=== PATIENT | male | born 1950 | race Caucasian/White ===

== ENCOUNTER 2017-06-30 15:50 | Emergency (ER) | payer MEDICARE, OTHER ==
[2017-06-30] MEDS: INDOMETHACIN 25 MG CAP PO (21:30)
== END 2017-06-30 21:40 | disposition home or self-care (01) ==
LOC: M ED 15:50
DX: M10.9 Gout, unspecified (principal); G71.0 Muscular dystrophy; Z79.899 Other long term (current) drug therapy
CPT/HCPCS: 73630

== ENCOUNTER 2017-07-03 14:10 | Inpatient (IN) | payer MEDICARE ==
[2017-07-03 15:53] LABS: BASO % 0.2 % (0.0-1.0); EOS % 0.4 % (0.0-3.0); HEMATOCRIT 35.2 % (42.0-52.0); HEMOGLOBIN 12.6 g/dl (13.5-17.5); IMMATURE GRANULOCYTE % 0.2 % (0-3.0); LYMPH # 0.4 10^3/uL (1.5-4.5); LYMPH % 9.2 % (24.0-44.0); MEAN CORPUSCULAR HEMOGLOBIN 36.3 pg (27.0-33.0); MEAN CORPUSCULAR HGB CONC 35.8 g/dl (32.0-36.5); MEAN CORPUSCULAR VOLUME 101.4 fl (80.0-96.0); MONO # 0.6 10^3/uL (0.0-0.8); MONO % 12.4 % (0.0-5.0); NEUTROPHILS # 3.7 10^3/uL (1.8-7.7); NEUTROPHILS % 77.6 % (36.0-66.0); RED BLOOD COUNT 3.47 10^6/uL (4.30-6.10); RED CELL DISTRIBUTION WIDTH 13.1 % (11.5-14.5); WHITE BLOOD COUNT 4.8 10^3/uL (4.0-10.0)
[2017-07-03 16:07] LABS: PLATELET COUNT, AUTOMATED 36 10^3/uL (150-450)
[2017-07-03 16:08] LABS: IMMATURE PLATELET FRACTION % 8.2 % (0.0-10.9)
[2017-07-03 16:15] LABS: ANION GAP 6 MEQ/L (8-16); BLOOD UREA NITROGEN 18 MG/DL (7-18); C REACTIVE PROTEIN QUANTITATIV 7.82 MG/DL (0.00-0.30); CARBON DIOXIDE LEVEL 27 MEQ/L (21-32); CHLORIDE LEVEL 102 MEQ/L (98-107); CREATININE FOR GFR 0.67 MG/DL (0.70-1.30); GLOMERULAR FILTRATION RATE > 60.0 (>49); GLUCOSE, FASTING 200 MG/DL (70-100); POTASSIUM SERUM 4.6 MEQ/L (3.5-5.1); SODIUM LEVEL 135 MEQ/L (136-145)
[2017-07-03 16:17] LABS: ERYTHROCYTE SEDIMENTATION RATE 50 mm/hr (0-20)
[2017-07-03 16:45] LABS: ESTIMATED AVERAGE GLUCOSE 114 MG/DL (60-110); HEMOGLOBIN A1c 5.6 %
[2017-07-03] MEDS: cefTRIAXone SOD 1 GM in D5W MINI-BAG PLUS 50 ML IV (17:15)
[2017-07-03] MEDS: NORCO, ANEXSIA 5/325MG TABLET (HYDROcodone/ACETAMINOPHEN) PO (17:22)
[2017-07-03] MEDS ORDERED: ONDANSETRON 4MG/2ML VIAL (J2405) IV (18:00)
[2017-07-03 18:25] LABS: LACTIC ACID SEPSIS PROTOCOL 1.5 MMOL/L (0.4-2.0)
[2017-07-03 19:37] LABS: URIC ACID 5.8 MG/DL (3.5-7.2)
[2017-07-03] MEDS: ACETAMINOPHEN TAB 650MG DOSE (2X325MG) PO (20:06)
[2017-07-04] MEDS: PIPERACILLIN/TAZOBACTAM SOD 3.375 GM in D5W MINI-BAG PLUS 50 ML IV ×5 (00:12→23:19)
[2017-07-04] MEDS: PERCOCET 5MG/325MG TAB PO ×4 (00:13→18:51)
[2017-07-04 07:18] LABS: HEMATOCRIT 33.5 % (42.0-52.0); HEMOGLOBIN 11.7 g/dl (13.5-17.5); MEAN CORPUSCULAR HEMOGLOBIN 35.9 pg (27.0-33.0); MEAN CORPUSCULAR HGB CONC 34.9 g/dl (32.0-36.5); MEAN CORPUSCULAR VOLUME 102.8 fl (80.0-96.0); RED BLOOD COUNT 3.26 10^6/uL (4.30-6.10); RED CELL DISTRIBUTION WIDTH 13.2 % (11.5-14.5); WHITE BLOOD COUNT 3.2 10^3/uL (4.0-10.0)
[2017-07-04 07:20] LABS: PLATELET COUNT, AUTOMATED 32 10^3/uL (150-450)
[2017-07-04 07:29] LABS: ANION GAP 8 MEQ/L (8-16); BLOOD UREA NITROGEN 14 MG/DL (7-18); C REACTIVE PROTEIN QUANTITATIV 9.08 MG/DL (0.00-0.30); CALCIUM LEVEL 8.8 MG/DL (8.8-10.2); CARBON DIOXIDE LEVEL 27 MEQ/L (21-32); CHLORIDE LEVEL 102 MEQ/L (98-107); CREATININE FOR GFR 0.72 MG/DL (0.70-1.30); GLOMERULAR FILTRATION RATE > 60.0 (>49); GLUCOSE, FASTING 170 MG/DL (70-100); POTASSIUM SERUM 4.8 MEQ/L (3.5-5.1); SODIUM LEVEL 137 MEQ/L (136-145)
[2017-07-04] MEDS: ATORVASTATIN 10 MG TAB PO (08:30)
[2017-07-04] MEDS: VITAMIN D 1,000 INTERNATIONAL UNITS TABLET PO (08:30)
[2017-07-04] MEDS: LISINOPRIL 20 MG TAB PO (08:30)
[2017-07-04] MEDS: PREVNAR 13 VACCINE SYRINGE (CPT CODE:90670) IM (08:56)
[2017-07-04] MEDS ORDERED: ENOXAPARIN 40 MG/0.4 ML SYRINGE (J1650) SC (09:00)
[2017-07-04] MEDS: VANCOMYCIN HCL 1,000 MG, VIAL MATE ADAPTER 1 EACH in D5W 250 ML IV ×2 (14:02→21:36)
[2017-07-05] MEDS: PERCOCET 5MG/325MG TAB PO ×3 (00:29→17:21)
[2017-07-05] MEDS: VANCOMYCIN HCL 1,000 MG, VIAL MATE ADAPTER 1 EACH in D5W 250 ML IV ×3 (05:42→21:09)
[2017-07-05 06:08] LABS: HEMOGLOBIN 10.5 g/dl (13.5-17.5); MEAN CORPUSCULAR HEMOGLOBIN 35.7 pg (27.0-33.0); RED BLOOD COUNT 2.94 10^6/uL (4.30-6.10); RED CELL DISTRIBUTION WIDTH 13.2 % (11.5-14.5); WHITE BLOOD COUNT 2.7 10^3/uL (4.0-10.0)
[2017-07-05 06:12] LABS: PLATELET COUNT, AUTOMATED 37 10^3/uL (150-450)
[2017-07-05 06:13] LABS: IMMATURE PLATELET FRACTION % 7.5 % (0.0-10.9)
[2017-07-05 06:24] LABS: ANION GAP 6 MEQ/L (8-16); BLOOD UREA NITROGEN 17 MG/DL (7-18); C REACTIVE PROTEIN QUANTITATIV 8.98 MG/DL (0.00-0.30); CALCIUM LEVEL 8.3 MG/DL (8.8-10.2); CARBON DIOXIDE LEVEL 28 MEQ/L (21-32); CHLORIDE LEVEL 101 MEQ/L (98-107); CREATININE FOR GFR 0.84 MG/DL (0.70-1.30); GLOMERULAR FILTRATION RATE > 60.0 (>49); GLUCOSE, FASTING 145 MG/DL (70-100); POTASSIUM SERUM 4.2 MEQ/L (3.5-5.1); SODIUM LEVEL 135 MEQ/L (136-145)
[2017-07-05] MEDS: PIPERACILLIN/TAZOBACTAM SOD 3.375 GM in D5W MINI-BAG PLUS 50 ML IV ×4 (06:37→23:27)
[2017-07-05] MEDS: ATORVASTATIN 10 MG TAB PO (07:59)
[2017-07-05] MEDS: VITAMIN D 1,000 INTERNATIONAL UNITS TABLET PO (08:00)
[2017-07-05] MEDS: LISINOPRIL 20 MG TAB PO (08:02)
[2017-07-05 13:53] LABS: VANCOMYCIN LEVEL TROUGH 14.5 UG/ML (10.0-20.0)
[2017-07-06] MEDS: PERCOCET 5MG/325MG TAB PO ×4 (00:42→19:04)
[2017-07-06] MEDS: PIPERACILLIN/TAZOBACTAM SOD 3.375 GM in D5W MINI-BAG PLUS 50 ML IV (05:50)
[2017-07-06 06:27] LABS: HEMATOCRIT 31.2 % (42.0-52.0); MEAN CORPUSCULAR HEMOGLOBIN 35.9 pg (27.0-33.0); MEAN CORPUSCULAR HGB CONC 35.3 g/dl (32.0-36.5); PLATELET COUNT, AUTOMATED 43 10^3/uL (150-450); RED BLOOD COUNT 3.06 10^6/uL (4.30-6.10); RED CELL DISTRIBUTION WIDTH 13.1 % (11.5-14.5); WHITE BLOOD COUNT 2.9 10^3/uL (4.0-10.0)
[2017-07-06 06:28] LABS: IMMATURE PLATELET FRACTION % 5.5 % (0.0-10.9)
[2017-07-06 06:42] LABS: ANION GAP 5 MEQ/L (8-16); BLOOD UREA NITROGEN 16 MG/DL (7-18); C REACTIVE PROTEIN QUANTITATIV 7.72 MG/DL (0.00-0.30); CALCIUM LEVEL 8.3 MG/DL (8.8-10.2); CARBON DIOXIDE LEVEL 30 MEQ/L (21-32); CHLORIDE LEVEL 101 MEQ/L (98-107); CREATININE FOR GFR 0.76 MG/DL (0.70-1.30); GLOMERULAR FILTRATION RATE > 60.0 (>49); GLUCOSE, FASTING 139 MG/DL (70-100); MAGNESIUM LEVEL 2.3 MG/DL (1.8-2.4); POTASSIUM SERUM 4.3 MEQ/L (3.5-5.1); SODIUM LEVEL 136 MEQ/L (136-145)
[2017-07-06] MEDS: VANCOMYCIN HCL 1,000 MG, VIAL MATE ADAPTER 1 EACH in D5W 250 ML IV ×3 (06:54→21:29)
[2017-07-06] MEDS: ATORVASTATIN 10 MG TAB PO (08:19)
[2017-07-06] MEDS: VITAMIN D 1,000 INTERNATIONAL UNITS TABLET PO (08:19)
[2017-07-06] MEDS ORDERED: PROHANCE 279.3MG/ML 5ML VIAL (A9576) As Ordered (12:37)
[2017-07-06] MEDS ORDERED: PROHANCE 279.3MG/ML 15ML VIAL (A9576) As Ordered (12:37)
[2017-07-07] MEDS: PERCOCET 5MG/325MG TAB PO ×6 (00:16→21:48)
[2017-07-07 05:57] LABS: HEMATOCRIT 32.4 % (42.0-52.0); HEMOGLOBIN 11.1 g/dl (13.5-17.5); MEAN CORPUSCULAR HEMOGLOBIN 34.6 pg (27.0-33.0); MEAN CORPUSCULAR HGB CONC 34.3 g/dl (32.0-36.5); MEAN CORPUSCULAR VOLUME 100.9 fl (80.0-96.0); RED BLOOD COUNT 3.21 10^6/uL (4.30-6.10); WHITE BLOOD COUNT 2.8 10^3/uL (4.0-10.0)
[2017-07-07 06:00] LABS: PLATELET COUNT, AUTOMATED 50 10^3/uL (150-450)
[2017-07-07] MEDS: VANCOMYCIN HCL 1,000 MG, VIAL MATE ADAPTER 1 EACH in D5W 250 ML IV ×3 (06:07→21:47)
[2017-07-07 06:17] LABS: ANION GAP 6 MEQ/L (8-16); BLOOD UREA NITROGEN 17 MG/DL (7-18); CALCIUM LEVEL 8.6 MG/DL (8.8-10.2); CARBON DIOXIDE LEVEL 28 MEQ/L (21-32); CHLORIDE LEVEL 103 MEQ/L (98-107); CREATININE FOR GFR 0.67 MG/DL (0.70-1.30); GLOMERULAR FILTRATION RATE > 60.0 (>49); GLUCOSE, FASTING 143 MG/DL (70-100); MAGNESIUM LEVEL 2.4 MG/DL (1.8-2.4); POTASSIUM SERUM 4.3 MEQ/L (3.5-5.1); SODIUM LEVEL 137 MEQ/L (136-145)
[2017-07-07] MEDS: VITAMIN D 1,000 INTERNATIONAL UNITS TABLET PO (08:24)
[2017-07-07] MEDS: ATORVASTATIN 10 MG TAB PO (08:25)
[2017-07-08] MEDS: PERCOCET 5MG/325MG TAB PO ×4 (02:16→22:04)
[2017-07-08 05:58] LABS: HEMATOCRIT 30.5 % (42.0-52.0); HEMOGLOBIN 10.7 g/dl (13.5-17.5); MEAN CORPUSCULAR HEMOGLOBIN 35.2 pg (27.0-33.0); MEAN CORPUSCULAR HGB CONC 35.1 g/dl (32.0-36.5); MEAN CORPUSCULAR VOLUME 100.3 fl (80.0-96.0); RED BLOOD COUNT 3.04 10^6/uL (4.30-6.10); WHITE BLOOD COUNT 2.8 10^3/uL (4.0-10.0)
[2017-07-08 06:05] LABS: ANION GAP 6 MEQ/L (8-16); BLOOD UREA NITROGEN 17 MG/DL (7-18); CALCIUM LEVEL 8.8 MG/DL (8.8-10.2); CARBON DIOXIDE LEVEL 29 MEQ/L (21-32); CHLORIDE LEVEL 103 MEQ/L (98-107); CREATININE FOR GFR 0.67 MG/DL (0.70-1.30); GLOMERULAR FILTRATION RATE > 60.0 (>49); GLUCOSE, FASTING 154 MG/DL (70-100); MAGNESIUM LEVEL 2.3 MG/DL (1.8-2.4); POTASSIUM SERUM 4.2 MEQ/L (3.5-5.1); SODIUM LEVEL 138 MEQ/L (136-145)
[2017-07-08] MEDS: VANCOMYCIN HCL 1,000 MG, VIAL MATE ADAPTER 1 EACH in D5W 250 ML IV (06:06)
[2017-07-08 06:17] LABS: PLATELET COUNT, AUTOMATED 51 10^3/uL (150-450)
[2017-07-08] MEDS: VITAMIN D 1,000 INTERNATIONAL UNITS TABLET PO (08:31)
[2017-07-08] MEDS: ATORVASTATIN 10 MG TAB PO (08:31)
[2017-07-08] MEDS: LOTRISONE CREAM 15 GM (BETAMETH/CLOTRIMAZOLE) TOP (09:00)
[2017-07-08] MEDS: DOXYCYCLINE HYCLATE 100 MG TAB PO (11:52)
[2017-07-08] MEDS: NAFCILLIN SOD 1 GM in D5W MINI-BAG PLUS 50 ML IV ×2 (13:53→18:09)
[2017-07-09] MEDS: NAFCILLIN SOD 1 GM in D5W MINI-BAG PLUS 50 ML IV ×4 (00:47→18:44)
[2017-07-09 06:15] LABS: HEMATOCRIT 30.7 % (42.0-52.0); HEMOGLOBIN 10.7 g/dl (13.5-17.5); MEAN CORPUSCULAR HEMOGLOBIN 35.5 pg (27.0-33.0); MEAN CORPUSCULAR HGB CONC 34.9 g/dl (32.0-36.5); PLATELET COUNT, AUTOMATED 51 10^3/uL (150-450); RED BLOOD COUNT 3.01 10^6/uL (4.30-6.10); RED CELL DISTRIBUTION WIDTH 12.9 % (11.5-14.5); WHITE BLOOD COUNT 2.2 10^3/uL (4.0-10.0)
[2017-07-09 06:17] LABS: IMMATURE PLATELET FRACTION % 4.3 % (0.0-10.9)
[2017-07-09] MEDS: PERCOCET 5MG/325MG TAB PO ×2 (06:34→14:19)
[2017-07-09 06:37] LABS: ANION GAP 4 MEQ/L (8-16); BLOOD UREA NITROGEN 17 MG/DL (7-18); CALCIUM LEVEL 8.8 MG/DL (8.8-10.2); CARBON DIOXIDE LEVEL 31 MEQ/L (21-32); CHLORIDE LEVEL 103 MEQ/L (98-107); GLOMERULAR FILTRATION RATE > 60.0 (>49); GLUCOSE, FASTING 129 MG/DL (70-100); POTASSIUM SERUM 4.3 MEQ/L (3.5-5.1); SODIUM LEVEL 138 MEQ/L (136-145)
[2017-07-09] MEDS: ATORVASTATIN 10 MG TAB PO (09:10)
[2017-07-09] MEDS: LOTRISONE CREAM 15 GM (BETAMETH/CLOTRIMAZOLE) TOP (09:10)
[2017-07-09] MEDS: VITAMIN D 1,000 INTERNATIONAL UNITS TABLET PO (09:10)
[2017-07-09] MEDS: DOCUSATE SODIUM 100 MG CAP PO (21:39)
[2017-07-10] MEDS: PERCOCET 5MG/325MG TAB PO ×3 (00:24→18:08)
[2017-07-10] MEDS: NAFCILLIN SOD 1 GM in D5W MINI-BAG PLUS 50 ML IV ×4 (00:24→19:41)
[2017-07-10 06:08] LABS: HEMATOCRIT 30.2 % (42.0-52.0); HEMOGLOBIN 10.3 g/dl (13.5-17.5); MEAN CORPUSCULAR HGB CONC 34.1 g/dl (32.0-36.5); MEAN CORPUSCULAR VOLUME 102.7 fl (80.0-96.0); RED BLOOD COUNT 2.94 10^6/uL (4.30-6.10); RED CELL DISTRIBUTION WIDTH 12.9 % (11.5-14.5); WHITE BLOOD COUNT 2.8 10^3/uL (4.0-10.0)
[2017-07-10 06:15] LABS: PLATELET COUNT, AUTOMATED 51 10^3/uL (150-450)
[2017-07-10 06:27] LABS: ANION GAP 5 MEQ/L (8-16); BLOOD UREA NITROGEN 20 MG/DL (7-18); CALCIUM LEVEL 8.5 MG/DL (8.8-10.2); CARBON DIOXIDE LEVEL 30 MEQ/L (21-32); CHLORIDE LEVEL 104 MEQ/L (98-107); CREATININE FOR GFR 0.69 MG/DL (0.70-1.30); GLOMERULAR FILTRATION RATE > 60.0 (>49); GLUCOSE, FASTING 122 MG/DL (70-100); POTASSIUM SERUM 4.4 MEQ/L (3.5-5.1); SODIUM LEVEL 139 MEQ/L (136-145)
[2017-07-10] MEDS: DOCUSATE SODIUM 100 MG CAP PO ×2 (08:15→19:41)
[2017-07-10] MEDS: ATORVASTATIN 10 MG TAB PO (08:15)
[2017-07-10] MEDS: VITAMIN D 1,000 INTERNATIONAL UNITS TABLET PO (08:15)
[2017-07-10] MEDS: LOTRISONE CREAM 15 GM (BETAMETH/CLOTRIMAZOLE) TOP (08:15)
[2017-07-10 10:36] LABS: C REACTIVE PROTEIN QUANTITATIV 1.65 MG/DL (0.00-0.30)
[2017-07-10] MEDS: predniSONE 20 MG TAB PO (10:57)
[2017-07-11] MEDS: NAFCILLIN SOD 1 GM in D5W MINI-BAG PLUS 50 ML IV ×4 (01:04→18:06)
[2017-07-11] MEDS: PERCOCET 5MG/325MG TAB PO ×3 (06:14→21:58)
[2017-07-11 06:43] LABS: FERRITIN 878 NG/ML (26-388); IRON (FE) 77 UG/DL (65-175); PERCENT SATURATION 34.8 % (19.7-50.0); TOTAL IRON BINDING CAPACITY 221 UG/DL (250-450)
[2017-07-11 07:56] LABS: HEMATOCRIT 29.4 % (42.0-52.0); HEMOGLOBIN 10.3 g/dl (13.5-17.5); MEAN CORPUSCULAR HEMOGLOBIN 35.9 pg (27.0-33.0); MEAN CORPUSCULAR VOLUME 102.4 fl (80.0-96.0); RED BLOOD COUNT 2.87 10^6/uL (4.30-6.10); RED CELL DISTRIBUTION WIDTH 12.7 % (11.5-14.5); WHITE BLOOD COUNT 3.2 10^3/uL (4.0-10.0)
[2017-07-11 08:02] LABS: ANION GAP 8 MEQ/L (8-16); BLOOD UREA NITROGEN 15 MG/DL (7-18); CALCIUM LEVEL 8.4 MG/DL (8.8-10.2); CARBON DIOXIDE LEVEL 27 MEQ/L (21-32); CHLORIDE LEVEL 106 MEQ/L (98-107); CREATININE FOR GFR 0.68 MG/DL (0.70-1.30); GLOMERULAR FILTRATION RATE > 60.0 (>49); GLUCOSE, FASTING 127 MG/DL (70-100); POTASSIUM SERUM 3.8 MEQ/L (3.5-5.1); SODIUM LEVEL 141 MEQ/L (136-145)
[2017-07-11 08:12] LABS: PLATELET COUNT, AUTOMATED 55 10^3/uL (150-450)
[2017-07-11 08:13] LABS: IMMATURE PLATELET FRACTION % 5.7 % (0.0-10.9)
[2017-07-11] MEDS: ATORVASTATIN 10 MG TAB PO (08:38)
[2017-07-11] MEDS: DOCUSATE SODIUM 100 MG CAP PO ×3 (08:38→20:43)
[2017-07-11] MEDS: VITAMIN D 1,000 INTERNATIONAL UNITS TABLET PO (08:38)
[2017-07-11] MEDS: predniSONE 20 MG TAB PO (08:38)
[2017-07-11] MEDS: LOTRISONE CREAM 15 GM (BETAMETH/CLOTRIMAZOLE) TOP (08:39)
[2017-07-12] MEDS: NAFCILLIN SOD 1 GM in D5W MINI-BAG PLUS 50 ML IV ×4 (00:22→18:17)
[2017-07-12 06:15] LABS: BASO % 0.7 % (0.0-1.0); EOS % 0.7 % (0.0-3.0); HEMOGLOBIN 10.6 g/dl (13.5-17.5); LYMPH # 0.9 10^3/uL (1.5-4.5); LYMPH % 30.8 % (24.0-44.0); MEAN CORPUSCULAR HEMOGLOBIN 35.2 pg (27.0-33.0); MEAN CORPUSCULAR HGB CONC 34.2 g/dl (32.0-36.5); MONO # 0.2 10^3/uL (0.0-0.8); MONO % 5.4 % (0.0-5.0); NEUTROPHILS # 1.8 10^3/uL (1.8-7.7); NEUTROPHILS % 60.4 % (36.0-66.0); RED BLOOD COUNT 3.01 10^6/uL (4.30-6.10); RED CELL DISTRIBUTION WIDTH 13.2 % (11.5-14.5)
[2017-07-12 06:20] LABS: PLATELET COUNT, AUTOMATED 55 10^3/uL (150-450)
[2017-07-12 06:29] LABS: ANION GAP 6 MEQ/L (8-16); BLOOD UREA NITROGEN 17 MG/DL (7-18); CALCIUM LEVEL 8.7 MG/DL (8.8-10.2); CARBON DIOXIDE LEVEL 29 MEQ/L (21-32); CHLORIDE LEVEL 106 MEQ/L (98-107); CREATININE FOR GFR 0.74 MG/DL (0.70-1.30); GLOMERULAR FILTRATION RATE > 60.0 (>49); GLUCOSE, FASTING 119 MG/DL (70-100); POTASSIUM SERUM 4.1 MEQ/L (3.5-5.1); SODIUM LEVEL 141 MEQ/L (136-145)
[2017-07-12] MEDS: predniSONE 10 MG TAB PO (10:20)
[2017-07-12] MEDS: PERCOCET 5MG/325MG TAB PO ×2 (10:20→18:17)
[2017-07-12] MEDS: LOTRISONE CREAM 15 GM (BETAMETH/CLOTRIMAZOLE) TOP (10:21)
[2017-07-12] MEDS: VITAMIN D 1,000 INTERNATIONAL UNITS TABLET PO (10:21)
[2017-07-12] MEDS: DOCUSATE SODIUM 100 MG CAP PO (10:21)
[2017-07-12] MEDS: ATORVASTATIN 10 MG TAB PO (10:21)
[2017-07-12 10:32] LABS: VITAMIN B12 LEVEL 1031 PG/ML (247-911)
[2017-07-12 10:33] LABS: FOLATE 15.8 NG/ML (>5.4)
[2017-07-12 19:21] LABS: C REACTIVE PROTEIN QUANTITATIV 0.59 MG/DL (0.00-0.30)
[2017-07-12 19:39] LABS: ALBUMIN 3.3 GM/DL (3.2-5.2); ALBUMIN/GLOBULIN RATIO 1.03 (1.00-1.93); ALKALINE PHOSPHATASE 106 U/L (45-117); ALT/SGPT 100 U/L (12-78); AST/SGOT 54 U/L (7-37); BILIRUBIN,DIRECT 0.3 MG/DL (0.0-0.2); BILIRUBIN,TOTAL 0.8 MG/DL (0.2-1.0); TOTAL PROTEIN 6.5 GM/DL (6.4-8.2)
[2017-07-13] MEDS: NAFCILLIN SOD 1 GM in D5W MINI-BAG PLUS 50 ML IV ×4 (00:41→18:46)
[2017-07-13 06:43] LABS: BASO % 0.7 % (0.0-1.0); EOS % 0.7 % (0.0-3.0); HEMATOCRIT 30.3 % (42.0-52.0); HEMOGLOBIN 10.5 g/dl (13.5-17.5); IMMATURE GRANULOCYTE % 1.4 % (0-3.0); LYMPH # 0.9 10^3/uL (1.5-4.5); LYMPH % 32.7 % (24.0-44.0); MEAN CORPUSCULAR HEMOGLOBIN 36.1 pg (27.0-33.0); MEAN CORPUSCULAR HGB CONC 34.7 g/dl (32.0-36.5); MEAN CORPUSCULAR VOLUME 104.1 fl (80.0-96.0); MONO # 0.2 10^3/uL (0.0-0.8); MONO % 6.5 % (0.0-5.0); NEUTROPHILS # 1.6 10^3/uL (1.8-7.7); RED BLOOD COUNT 2.91 10^6/uL (4.30-6.10); RED CELL DISTRIBUTION WIDTH 13.3 % (11.5-14.5); WHITE BLOOD COUNT 2.8 10^3/uL (4.0-10.0)
[2017-07-13 06:50] LABS: PLATELET COUNT, AUTOMATED 55 10^3/uL (150-450)
[2017-07-13 06:51] LABS: IMMATURE PLATELET FRACTION % 3.1 % (0.0-10.9)
[2017-07-13 06:53] LABS: ANION GAP 6 MEQ/L (8-16); BLOOD UREA NITROGEN 15 MG/DL (7-18); CALCIUM LEVEL 8.6 MG/DL (8.8-10.2); CARBON DIOXIDE LEVEL 30 MEQ/L (21-32); CHLORIDE LEVEL 105 MEQ/L (98-107); CREATININE FOR GFR 0.67 MG/DL (0.70-1.30); GLOMERULAR FILTRATION RATE > 60.0 (>49); GLUCOSE, FASTING 116 MG/DL (70-100); POTASSIUM SERUM 3.8 MEQ/L (3.5-5.1); SODIUM LEVEL 141 MEQ/L (136-145)
[2017-07-13] MEDS: predniSONE 10 MG TAB PO (08:50)
[2017-07-13] MEDS: ATORVASTATIN 10 MG TAB PO (08:50)
[2017-07-13] MEDS: PERCOCET 5MG/325MG TAB PO (08:50)
[2017-07-13] MEDS: VITAMIN D 1,000 INTERNATIONAL UNITS TABLET PO (08:51)
[2017-07-13] MEDS: LOTRISONE CREAM 15 GM (BETAMETH/CLOTRIMAZOLE) TOP (08:51)
[2017-07-13 09:51] LABS: ALPHA FETOPROTEIN TUMOR QUANT 2.6 NG/ML (<8.1)
[2017-07-13] MEDS: CEPHALEXIN 500 MG CAP PO (22:51)
[2017-07-14 06:32] LABS: BASO % 1.1 % (0.0-1.0); EOS % 0.7 % (0.0-3.0); HEMOGLOBIN 10.6 g/dl (13.5-17.5); IMMATURE GRANULOCYTE % 1.1 % (0-3.0); LYMPH # 0.8 10^3/uL (1.5-4.5); LYMPH % 30.2 % (24.0-44.0); MEAN CORPUSCULAR HEMOGLOBIN 35.6 pg (27.0-33.0); MEAN CORPUSCULAR HGB CONC 34.2 g/dl (32.0-36.5); MONO # 0.2 10^3/uL (0.0-0.8); MONO % 6.9 % (0.0-5.0); NEUTROPHILS # 1.7 10^3/uL (1.8-7.7); RED BLOOD COUNT 2.98 10^6/uL (4.30-6.10); RED CELL DISTRIBUTION WIDTH 13.6 % (11.5-14.5); WHITE BLOOD COUNT 2.8 10^3/uL (4.0-10.0)
[2017-07-14 06:34] LABS: PLATELET COUNT, AUTOMATED 56 10^3/uL (150-450)
[2017-07-14 06:35] LABS: IMMATURE PLATELET FRACTION % 3.1 % (0.0-10.9)
[2017-07-14 06:46] LABS: ANION GAP 7 MEQ/L (8-16); BLOOD UREA NITROGEN 14 MG/DL (7-18); CALCIUM LEVEL 8.5 MG/DL (8.8-10.2); CARBON DIOXIDE LEVEL 26 MEQ/L (21-32); CHLORIDE LEVEL 108 MEQ/L (98-107); CREATININE FOR GFR 0.66 MG/DL (0.70-1.30); GLOMERULAR FILTRATION RATE > 60.0 (>49); GLUCOSE, FASTING 119 MG/DL (70-100); POTASSIUM SERUM 3.9 MEQ/L (3.5-5.1); SODIUM LEVEL 141 MEQ/L (136-145)
[2017-07-14] MEDS: ATORVASTATIN 10 MG TAB PO (08:40)
[2017-07-14] MEDS: VITAMIN D 1,000 INTERNATIONAL UNITS TABLET PO (08:40)
[2017-07-14] MEDS: predniSONE 10 MG TAB PO (08:40)
[2017-07-14] MEDS: CEPHALEXIN 500 MG CAP PO ×3 (08:40→20:37)
[2017-07-14] MEDS: PERCOCET 5MG/325MG TAB PO ×2 (08:40→15:47)
[2017-07-14] MEDS: LOTRISONE CREAM 15 GM (BETAMETH/CLOTRIMAZOLE) TOP (08:41)
[2017-07-14 09:52] LABS: HEPATITIS C VIRUS ABY INDEX < 0.0 INDEX (<0.8)
[2017-07-15 06:17] LABS: BASO % 0.9 % (0.0-1.0); EOS % 0.9 % (0.0-3.0); HEMATOCRIT 31.4 % (42.0-52.0); HEMOGLOBIN 10.5 g/dl (13.5-17.5); IMMATURE GRANULOCYTE % 1.3 % (0-3.0); LYMPH # 1.1 10^3/uL (1.5-4.5); LYMPH % 34.5 % (24.0-44.0); MEAN CORPUSCULAR HGB CONC 33.4 g/dl (32.0-36.5); MEAN CORPUSCULAR VOLUME 104.7 fl (80.0-96.0); MONO # 0.2 10^3/uL (0.0-0.8); MONO % 6.9 % (0.0-5.0); NEUTROPHILS # 1.8 10^3/uL (1.8-7.7); NEUTROPHILS % 55.5 % (36.0-66.0); RED CELL DISTRIBUTION WIDTH 13.9 % (11.5-14.5); WHITE BLOOD COUNT 3.2 10^3/uL (4.0-10.0)
[2017-07-15 06:19] LABS: PLATELET COUNT, AUTOMATED 57 10^3/uL (150-450)
[2017-07-15 06:33] LABS: ANION GAP 6 MEQ/L (8-16); BLOOD UREA NITROGEN 14 MG/DL (7-18); CALCIUM LEVEL 8.5 MG/DL (8.8-10.2); CARBON DIOXIDE LEVEL 28 MEQ/L (21-32); CHLORIDE LEVEL 108 MEQ/L (98-107); GLOMERULAR FILTRATION RATE > 60.0 (>49); GLUCOSE, FASTING 115 MG/DL (70-100); POTASSIUM SERUM 4.1 MEQ/L (3.5-5.1); SODIUM LEVEL 142 MEQ/L (136-145)
[2017-07-15] MEDS: VITAMIN D 1,000 INTERNATIONAL UNITS TABLET PO (09:38)
[2017-07-15] MEDS: CEPHALEXIN 500 MG CAP PO ×3 (09:38→20:05)
[2017-07-15] MEDS: predniSONE 10 MG TAB PO (09:38)
[2017-07-15] MEDS: ATORVASTATIN 10 MG TAB PO (09:38)
[2017-07-15] MEDS: LOTRISONE CREAM 15 GM (BETAMETH/CLOTRIMAZOLE) TOP (09:39)
[2017-07-15] MEDS: PERCOCET 5MG/325MG TAB PO (09:39)
[2017-07-16 07:25] LABS: BASO % 0.9 % (0.0-1.0); EOS % 0.6 % (0.0-3.0); HEMATOCRIT 32.4 % (42.0-52.0); IMMATURE GRANULOCYTE % 0.9 % (0-3.0); LYMPH % 29.6 % (24.0-44.0); MEAN CORPUSCULAR HEMOGLOBIN 35.6 pg (27.0-33.0); MEAN CORPUSCULAR VOLUME 104.9 fl (80.0-96.0); MONO # 0.2 10^3/uL (0.0-0.8); MONO % 6.8 % (0.0-5.0); NEUTROPHILS # 2.1 10^3/uL (1.8-7.7); NEUTROPHILS % 61.2 % (36.0-66.0); PLATELET COUNT, AUTOMATED 65 10^3/uL (150-450); RED BLOOD COUNT 3.09 10^6/uL (4.30-6.10); RED CELL DISTRIBUTION WIDTH 14.3 % (11.5-14.5); WHITE BLOOD COUNT 3.4 10^3/uL (4.0-10.0)
[2017-07-16 07:45] LABS: ANION GAP 7 MEQ/L (8-16); BLOOD UREA NITROGEN 16 MG/DL (7-18); CALCIUM LEVEL 8.7 MG/DL (8.8-10.2); CARBON DIOXIDE LEVEL 28 MEQ/L (21-32); CHLORIDE LEVEL 107 MEQ/L (98-107); CREATININE FOR GFR 0.63 MG/DL (0.70-1.30); GLOMERULAR FILTRATION RATE > 60.0 (>49); GLUCOSE, FASTING 110 MG/DL (70-100); SODIUM LEVEL 142 MEQ/L (136-145)
[2017-07-16] MEDS: CEPHALEXIN 500 MG CAP PO ×3 (08:25→20:41)
[2017-07-16] MEDS: VITAMIN D 1,000 INTERNATIONAL UNITS TABLET PO (08:25)
[2017-07-16] MEDS: LOTRISONE CREAM 15 GM (BETAMETH/CLOTRIMAZOLE) TOP (08:25)
[2017-07-16] MEDS: ATORVASTATIN 10 MG TAB PO (08:25)
[2017-07-16] MEDS: predniSONE 10 MG TAB PO (08:25)
[2017-07-16] MEDS: PERCOCET 5MG/325MG TAB PO ×2 (08:35→14:10)
[2017-07-17 06:30] LABS: HEMATOCRIT 31.5 % (42.0-52.0); HEMOGLOBIN 10.6 g/dl (13.5-17.5); IMMATURE GRANULOCYTE % 0.3 % (0-3.0); MEAN CORPUSCULAR HEMOGLOBIN 35.5 pg (27.0-33.0); MEAN CORPUSCULAR HGB CONC 33.7 g/dl (32.0-36.5); MEAN CORPUSCULAR VOLUME 105.4 fl (80.0-96.0); MONO # 0.2 10^3/uL (0.0-0.8); MONO % 7.7 % (0.0-5.0); NEUTROPHILS # 1.7 10^3/uL (1.8-7.7); RED BLOOD COUNT 2.99 10^6/uL (4.30-6.10); RED CELL DISTRIBUTION WIDTH 14.1 % (11.5-14.5)
[2017-07-17 06:33] LABS: PLATELET COUNT, AUTOMATED 58 10^3/uL (150-450)
[2017-07-17 06:36] LABS: ANION GAP 4 MEQ/L (8-16); BLOOD UREA NITROGEN 18 MG/DL (7-18); CALCIUM LEVEL 8.4 MG/DL (8.8-10.2); CARBON DIOXIDE LEVEL 29 MEQ/L (21-32); CHLORIDE LEVEL 108 MEQ/L (98-107); CREATININE FOR GFR 0.58 MG/DL (0.70-1.30); GLOMERULAR FILTRATION RATE > 60.0 (>49); GLUCOSE, FASTING 158 MG/DL (70-100); POTASSIUM SERUM 3.7 MEQ/L (3.5-5.1); SODIUM LEVEL 141 MEQ/L (136-145)
[2017-07-17] MEDS: VITAMIN D 1,000 INTERNATIONAL UNITS TABLET PO (07:32)
[2017-07-17] MEDS: predniSONE 10 MG TAB PO (07:32)
[2017-07-17] MEDS: ATORVASTATIN 10 MG TAB PO (07:32)
[2017-07-17] MEDS: CEPHALEXIN 500 MG CAP PO (07:32)
[2017-07-17] MEDS: PERCOCET 5MG/325MG TAB PO (07:33)
[2017-07-17] MEDS: LOTRISONE CREAM 15 GM (BETAMETH/CLOTRIMAZOLE) TOP (08:06)
== END 2017-07-17 11:39 | disposition home or self-care (01) | DRG 603 ==
LOC: M MSPAV 07-06 23:17 → M ED 14:10 → M MSPAV 07-06 23:10 → M ED INP 17:07 → M MSPAV 07-06 23:10 → M ED INP 17:08 → M MSPAV 18:28
DX: L03.116 Cellulitis of left lower limb (principal); G71.0 Muscular dystrophy; D61.818 Other pancytopenia; S86.912A Strain of unspecified muscle(s) and tendon(s) at lower leg level, left leg, initial encounter; E78.5 Hyperlipidemia, unspecified; D69.6 Thrombocytopenia, unspecified; K74.69 Other cirrhosis of liver; M76.71 Peroneal tendinitis, right leg; Z79.899 Other long term (current) drug therapy; M10.9 Gout, unspecified; I10 Essential (primary) hypertension; F10.10 Alcohol abuse, uncomplicated; W18.30XA Fall on same level, unspecified, initial encounter; Y92.009 Unspecified place in unspecified non-institutional (private) residence as the place of occurrence of the external cause

== ENCOUNTER 2018-01-03 21:20 | Emergency (ER) | payer MEDICARE ==
[2018-01-03] MEDS: NORCO 5/325MG TABLET (BULK FOR ED) PO (23:18)
== END 2018-01-03 23:28 | disposition home or self-care (01) ==
LOC: M ED 21:20
DX: S63.8X1A Sprain of other part of right wrist and hand, initial encounter (principal); X58.XXXA Exposure to other specified factors, initial encounter; Y92.018 Other place in single-family (private) house as the place of occurrence of the external cause
CPT/HCPCS: 73110

== ENCOUNTER 2018-01-06 13:21 | Emergency (ER) | payer MEDICARE | END 2018-01-06 15:13 | disposition home or self-care (01) | LOC: M ED 13:21 | DX: S69.91XA Unspecified injury of right wrist, hand and finger(s), initial encounter (principal); X50.9XXA Other and unspecified overexertion or strenuous movements or postures, initial encounter; Y92.89 Other specified places as the place of occurrence of the external cause; E78.00 Pure hypercholesterolemia, unspecified; I95.9 Hypotension, unspecified; G71.02 Facioscapulohumeral muscular dystrophy | CPT/HCPCS: 99283 ==

== ENCOUNTER 2018-01-12 10:28 | Inpatient (IN) | payer MEDICARE ==
[~2018-01-12 10:28] MED LIST: ATORVASTATIN 10 MG TAB PO
[2018-01-12] MEDS: MORPHINE 4 MG/ML 1ML VIAL/SYRINGE (J2270) IV (11:19)
[2018-01-12 11:33] LABS: HEMATOCRIT 31.5 % (42.0-52.0); HEMOGLOBIN 11.1 g/dl (13.5-17.5); MEAN CORPUSCULAR HEMOGLOBIN 35.5 pg (27.0-33.0); MEAN CORPUSCULAR HGB CONC 35.2 g/dl (32.0-36.5); MEAN CORPUSCULAR VOLUME 100.6 fl (80.0-96.0); RED BLOOD COUNT 3.13 10^6/uL (4.30-6.10); RED CELL DISTRIBUTION WIDTH 13.2 % (11.5-14.5); WHITE BLOOD COUNT 5.1 10^3/uL (4.0-10.0)
[2018-01-12 11:47] LABS: PLATELET COUNT, AUTOMATED 33 10^3/uL (150-450); POSITIVE DIFF POS FLAG; POSITIVE MORPH POS FLAG
[2018-01-12 11:48] LABS: ADD MANUAL DIFFER YES; DIFF SLIDE NUMBER 231
[2018-01-12 11:53] LABS: ANION GAP 11 MEQ/L (8-16); BLOOD UREA NITROGEN 18 MG/DL (7-18); CALCIUM LEVEL 7.4 MG/DL (8.8-10.2); CARBON DIOXIDE LEVEL 26 MEQ/L (21-32); CHLORIDE LEVEL 93 MEQ/L (98-107); CREATININE FOR GFR 0.69 MG/DL (0.70-1.30); GLOMERULAR FILTRATION RATE > 60.0 (>49); GLUCOSE, FASTING 177 MG/DL (70-100); POTASSIUM SERUM 3.7 MEQ/L (3.5-5.1); SODIUM LEVEL 130 MEQ/L (136-145)
[2018-01-12 12:14] LABS: BANDS 14 % (< 11); LYMPHOCYTES 7 % (16-52); METAMYELOCYTES 1 % (0-0); MONOCYTES 10 % (0-8); NEUTROPHILS 68 % (35-75)
[2018-01-12 12:15] LABS: PLATELET ESTIMATE MARKED DECREASE (NORMAL); POLYCHROMASIA 1+; TOXIC GRANULATION 2+; TOXIC VACUOLATION 2+
[2018-01-12 12:56] LABS: IMMATURE PLATELET FRACTION % 10.7 % (0.0-10.9)
[2018-01-12] MEDS: NS 1,000 ML IV ×2 (13:45→23:45)
[2018-01-12 14:11] LABS: ALBUMIN 2.2 GM/DL (3.2-5.2); ALBUMIN/GLOBULIN RATIO 0.79 (1.00-1.93); ALKALINE PHOSPHATASE 91 U/L (45-117); ALT/SGPT 69 U/L (12-78); AST/SGOT 67 U/L (7-37); BILIRUBIN,DIRECT 1.2 MG/DL (0.0-0.2); BILIRUBIN,TOTAL 2.1 MG/DL (0.2-1.0)
[2018-01-12] MEDS: ceFAZolin SOD 1 GM in D5W MINI-BAG PLUS 50 ML IV ×2 (14:15→22:24)
[2018-01-12] MEDS: PERCOCET 5MG/325MG TAB PO ×2 (14:23→20:06)
[2018-01-12 14:31] LABS: CHLORIDE,RANDOM URINE 11 MEQ/L; POTASSIUM RANDOM URINE 6.1 MEQ/L; SODIUM,RANDOM URINE < 10 MEQ/L
[2018-01-12 14:55] LABS: OSMOLALITY URINE 138 MOSM/KG (500-800)
[2018-01-12 19:49] LABS: ANION GAP 11 MEQ/L (8-16); BLOOD UREA NITROGEN 16 MG/DL (7-18); CALCIUM LEVEL 7.4 MG/DL (8.8-10.2); CARBON DIOXIDE LEVEL 25 MEQ/L (21-32); CHLORIDE LEVEL 94 MEQ/L (98-107); CREATININE FOR GFR 0.69 MG/DL (0.70-1.30); GLOMERULAR FILTRATION RATE > 60.0 (>49); GLUCOSE, FASTING 171 MG/DL (70-100); POTASSIUM SERUM 3.7 MEQ/L (3.5-5.1); SODIUM LEVEL 130 MEQ/L (136-145)
[2018-01-12] MEDS: DOCUSATE SODIUM 100 MG CAP PO (22:23)
[2018-01-13] MEDS: PERCOCET 5MG/325MG TAB PO ×4 (03:56→23:03)
[2018-01-13 04:41] LABS: HEMATOCRIT 31.6 % (42.0-52.0); HEMOGLOBIN 11.1 g/dl (13.5-17.5); MEAN CORPUSCULAR HGB CONC 35.1 g/dl (32.0-36.5); MEAN CORPUSCULAR VOLUME 99.7 fl (80.0-96.0); RED BLOOD COUNT 3.17 10^6/uL (4.30-6.10); RED CELL DISTRIBUTION WIDTH 13.2 % (11.5-14.5); WHITE BLOOD COUNT 6.3 10^3/uL (4.0-10.0)
[2018-01-13 04:45] LABS: PLATELET COUNT, AUTOMATED 41 10^3/uL (150-450)
[2018-01-13 05:08] LABS: ANION GAP 10 MEQ/L (8-16); BLOOD UREA NITROGEN 15 MG/DL (7-18); CALCIUM LEVEL 7.4 MG/DL (8.8-10.2); CARBON DIOXIDE LEVEL 25 MEQ/L (21-32); CHLORIDE LEVEL 94 MEQ/L (98-107); CREATININE FOR GFR 0.65 MG/DL (0.70-1.30); GLOMERULAR FILTRATION RATE > 60.0 (>49); GLUCOSE, FASTING 141 MG/DL (70-100); POTASSIUM SERUM 3.5 MEQ/L (3.5-5.1); SODIUM LEVEL 129 MEQ/L (136-145)
[2018-01-13] MEDS: ceFAZolin SOD 1 GM in D5W MINI-BAG PLUS 50 ML IV ×3 (05:40→23:03)
[2018-01-13] MEDS: ATORVASTATIN 10 MG TAB PO (08:22)
[2018-01-13] MEDS: DOCUSATE SODIUM 100 MG CAP PO ×2 (08:22→21:37)
[2018-01-13] MEDS: NS 1,000 ML IV (10:09)
[2018-01-13 11:36] LABS: ANION GAP 9 MEQ/L (8-16); BLOOD UREA NITROGEN 16 MG/DL (7-18); CALCIUM LEVEL 7.3 MG/DL (8.8-10.2); CARBON DIOXIDE LEVEL 26 MEQ/L (21-32); CHLORIDE LEVEL 96 MEQ/L (98-107); CREATININE FOR GFR 0.59 MG/DL (0.70-1.30); GLOMERULAR FILTRATION RATE > 60.0 (>49); GLUCOSE, FASTING 157 MG/DL (70-100); POTASSIUM SERUM 3.7 MEQ/L (3.5-5.1); SODIUM LEVEL 131 MEQ/L (136-145)
[2018-01-13] MEDS ORDERED: VANCOMYCIN HCL 1,000 MG, VIAL MATE ADAPTER 1 EACH in D5W 250 ML IV (14:00)
[2018-01-13] MEDS: VANCOMYCIN HCL 1,000 MG, VIAL MATE ADAPTER 1 EACH in D5W 250 ML IV ×2 (15:02→21:37)
[2018-01-14 06:07] LABS: HEMATOCRIT 33.7 % (42.0-52.0); HEMOGLOBIN 11.8 g/dl (13.5-17.5); MEAN CORPUSCULAR HEMOGLOBIN 34.9 pg (27.0-33.0); MEAN CORPUSCULAR VOLUME 99.7 fl (80.0-96.0); RED BLOOD COUNT 3.38 10^6/uL (4.30-6.10); RED CELL DISTRIBUTION WIDTH 13.2 % (11.5-14.5); WHITE BLOOD COUNT 4.6 10^3/uL (4.0-10.0)
[2018-01-14 06:09] LABS: PLATELET COUNT, AUTOMATED 47 10^3/uL (150-450)
[2018-01-14 06:11] LABS: IMMATURE PLATELET FRACTION % 6.7 % (0.0-10.9)
[2018-01-14] MEDS: VANCOMYCIN HCL 1,000 MG, VIAL MATE ADAPTER 1 EACH in D5W 250 ML IV ×3 (06:19→21:38)
[2018-01-14 06:23] LABS: ANION GAP 9 MEQ/L (8-16); BLOOD UREA NITROGEN 14 MG/DL (7-18); CALCIUM LEVEL 7.7 MG/DL (8.8-10.2); CARBON DIOXIDE LEVEL 27 MEQ/L (21-32); CHLORIDE LEVEL 95 MEQ/L (98-107); GLOMERULAR FILTRATION RATE > 60.0 (>49); GLUCOSE, FASTING 144 MG/DL (70-100); POTASSIUM SERUM 3.3 MEQ/L (3.5-5.1); SODIUM LEVEL 131 MEQ/L (136-145)
[2018-01-14] MEDS: ceFAZolin SOD 1 GM in D5W MINI-BAG PLUS 50 ML IV ×3 (06:56→22:52)
[2018-01-14] MEDS: PERCOCET 5MG/325MG TAB PO ×2 (08:45→21:38)
[2018-01-14] MEDS: DOCUSATE SODIUM 100 MG CAP PO ×2 (08:45→21:37)
[2018-01-14] MEDS: ATORVASTATIN 10 MG TAB PO (09:00)
[2018-01-14] MEDS ORDERED: KETOROLAC 30 MG/ML VIAL (J1885) IV (12:15)
[2018-01-14] MEDS: KETOROLAC 30 MG/ML VIAL (J1885) IV ×2 (12:59→18:30)
[2018-01-14] MEDS: POTASSIUM CHLORIDE 10 MEQ SR TABLET PO (12:59)
[2018-01-15] MEDS: KETOROLAC 30 MG/ML VIAL (J1885) IV ×4 (00:10→18:00)
[2018-01-15] MEDS: PERCOCET 5MG/325MG TAB PO ×2 (05:18→13:20)
[2018-01-15] MEDS: VANCOMYCIN HCL 1,000 MG, VIAL MATE ADAPTER 1 EACH in D5W 250 ML IV (05:19)
[2018-01-15 06:18] LABS: HEMOGLOBIN 10.9 g/dl (13.5-17.5); MEAN CORPUSCULAR HGB CONC 35.2 g/dl (32.0-36.5); MEAN CORPUSCULAR VOLUME 99.7 fl (80.0-96.0); RED BLOOD COUNT 3.11 10^6/uL (4.30-6.10); RED CELL DISTRIBUTION WIDTH 13.1 % (11.5-14.5); WHITE BLOOD COUNT 5.1 10^3/uL (4.0-10.0)
[2018-01-15 06:23] LABS: IMMATURE PLATELET FRACTION % 5.8 % (0.0-10.9); PLATELET COUNT, AUTOMATED 54 10^3/uL (150-450)
[2018-01-15] MEDS: ceFAZolin SOD 1 GM in D5W MINI-BAG PLUS 50 ML IV ×3 (06:42→22:20)
[2018-01-15 06:49] LABS: ANION GAP 8 MEQ/L (8-16); BLOOD UREA NITROGEN 16 MG/DL (7-18); CALCIUM LEVEL 6.8 MG/DL (8.8-10.2); CARBON DIOXIDE LEVEL 23 MEQ/L (21-32); CHLORIDE LEVEL 80 MEQ/L (98-107); CREATININE FOR GFR 0.69 MG/DL (0.70-1.30); GLOMERULAR FILTRATION RATE > 60.0 (>49); GLUCOSE, FASTING 708 MG/DL (70-100); POTASSIUM SERUM 3.5 MEQ/L (3.5-5.1); SODIUM LEVEL 111 MEQ/L (136-145)
[2018-01-15 06:58] LABS: BEDSIDE GLUCOSE 180 MG/DL (80-115)
[2018-01-15 08:22] LABS: ANION GAP 9 MEQ/L (8-16); BLOOD UREA NITROGEN 17 MG/DL (7-18); CALCIUM LEVEL 7.7 MG/DL (8.8-10.2); CARBON DIOXIDE LEVEL 26 MEQ/L (21-32); CHLORIDE LEVEL 94 MEQ/L (98-107); CREATININE FOR GFR 0.56 MG/DL (0.70-1.30); GLOMERULAR FILTRATION RATE > 60.0 (>49); GLUCOSE, FASTING 195 MG/DL (70-100); POTASSIUM SERUM 4.1 MEQ/L (3.5-5.1); SODIUM LEVEL 129 MEQ/L (136-145)
[2018-01-15] MEDS: ATORVASTATIN 10 MG TAB PO (08:52)
[2018-01-15] MEDS: DOCUSATE SODIUM 100 MG CAP PO (08:52)
[2018-01-15] MEDS ORDERED: FLEET ENEMA PR (09:45)
[2018-01-15] MEDS: BISACODYL 5 MG TAB PO (12:18)
[2018-01-15] MEDS: SENOKOT S TAB PO ×2 (12:18→22:20)
[2018-01-16] MEDS: ceFAZolin SOD 1 GM in D5W MINI-BAG PLUS 50 ML IV ×3 (05:44→22:02)
[2018-01-16] MEDS: KETOROLAC 30 MG/ML VIAL (J1885) IV ×4 (05:44→18:05)
[2018-01-16 06:08] LABS: HEMATOCRIT 33.6 % (42.0-52.0); HEMOGLOBIN 11.9 g/dl (13.5-17.5); MEAN CORPUSCULAR HEMOGLOBIN 34.8 pg (27.0-33.0); MEAN CORPUSCULAR HGB CONC 35.4 g/dl (32.0-36.5); MEAN CORPUSCULAR VOLUME 98.2 fl (80.0-96.0); RED BLOOD COUNT 3.42 10^6/uL (4.30-6.10); RED CELL DISTRIBUTION WIDTH 13.2 % (11.5-14.5); WHITE BLOOD COUNT 5.6 10^3/uL (4.0-10.0)
[2018-01-16 06:09] LABS: PLATELET COUNT, AUTOMATED 68 10^3/uL (150-450)
[2018-01-16 06:22] LABS: ANION GAP 7 MEQ/L (8-16); BLOOD UREA NITROGEN 19 MG/DL (7-18); CALCIUM LEVEL 8.1 MG/DL (8.8-10.2); CARBON DIOXIDE LEVEL 28 MEQ/L (21-32); CHLORIDE LEVEL 94 MEQ/L (98-107); CREATININE FOR GFR 0.64 MG/DL (0.70-1.30); GLOMERULAR FILTRATION RATE > 60.0 (>49); GLUCOSE, FASTING 155 MG/DL (70-100); POTASSIUM SERUM 4.1 MEQ/L (3.5-5.1); SODIUM LEVEL 129 MEQ/L (136-145)
[2018-01-16] MEDS: BISACODYL 5 MG TAB PO ×2 (09:02→09:06)
[2018-01-16] MEDS: SENOKOT S TAB PO ×2 (09:02→20:06)
[2018-01-16] MEDS: ATORVASTATIN 10 MG TAB PO (09:02)
[2018-01-16] MEDS: PERCOCET 5MG/325MG TAB PO ×3 (09:05→22:02)
[2018-01-17] MEDS: KETOROLAC 30 MG/ML VIAL (J1885) IV ×5 (01:09→23:33)
[2018-01-17] MEDS: MORPHINE 4 MG/ML 1ML VIAL/SYRINGE (J2270) IV (02:47)
[2018-01-17] MEDS: PERCOCET 5MG/325MG TAB PO ×2 (04:21→21:25)
[2018-01-17] MEDS: ceFAZolin SOD 1 GM in D5W MINI-BAG PLUS 50 ML IV ×3 (05:53→21:25)
[2018-01-17 07:01] LABS: HEMATOCRIT 32.3 % (42.0-52.0); HEMOGLOBIN 11.3 g/dl (13.5-17.5); MEAN CORPUSCULAR HEMOGLOBIN 35.2 pg (27.0-33.0); MEAN CORPUSCULAR VOLUME 100.6 fl (80.0-96.0); RED BLOOD COUNT 3.21 10^6/uL (4.30-6.10); RED CELL DISTRIBUTION WIDTH 13.2 % (11.5-14.5); WHITE BLOOD COUNT 4.8 10^3/uL (4.0-10.0)
[2018-01-17 07:02] LABS: IMMATURE PLATELET FRACTION % 3.9 % (0.0-10.9); PLATELET COUNT, AUTOMATED 72 10^3/uL (150-450)
[2018-01-17 07:21] LABS: ANION GAP 7 MEQ/L (8-16); BLOOD UREA NITROGEN 22 MG/DL (7-18); C REACTIVE PROTEIN QUANTITATIV 7.98 MG/DL (0.00-0.30); CALCIUM LEVEL 7.7 MG/DL (8.8-10.2); CARBON DIOXIDE LEVEL 28 MEQ/L (21-32); CHLORIDE LEVEL 95 MEQ/L (98-107); CREATININE FOR GFR 0.63 MG/DL (0.70-1.30); GLOMERULAR FILTRATION RATE > 60.0 (>49); GLUCOSE, FASTING 148 MG/DL (70-100); POTASSIUM SERUM 4.5 MEQ/L (3.5-5.1); SODIUM LEVEL 130 MEQ/L (136-145)
[2018-01-17] MEDS: ATORVASTATIN 10 MG TAB PO (08:44)
[2018-01-17] MEDS: SENOKOT S TAB PO ×2 (08:44→21:24)
[2018-01-17] MEDS: BISACODYL 5 MG TAB PO (08:44)
[2018-01-17] MEDS ORDERED: PROHANCE 279.3MG/ML 15ML VIAL (A9576) As Ordered (20:36)
[2018-01-17] MEDS ORDERED: PROHANCE 279.3MG/ML 5ML VIAL (A9576) As Ordered (20:36)
[2018-01-17] MEDS: RAMELTEON 8 MG TAB (ROZEREM) PO (23:33)
[2018-01-18] MEDS: KETOROLAC 30 MG/ML VIAL (J1885) IV ×3 (05:30→18:25)
[2018-01-18] MEDS: ceFAZolin SOD 1 GM in D5W MINI-BAG PLUS 50 ML IV ×2 (05:30→14:27)
[2018-01-18] MEDS: PERCOCET 5MG/325MG TAB PO ×2 (05:31→20:58)
[2018-01-18 05:48] LABS: HEMATOCRIT 33.7 % (42.0-52.0); HEMOGLOBIN 11.7 g/dl (13.5-17.5); MEAN CORPUSCULAR HEMOGLOBIN 34.3 pg (27.0-33.0); MEAN CORPUSCULAR HGB CONC 34.7 g/dl (32.0-36.5); MEAN CORPUSCULAR VOLUME 98.8 fl (80.0-96.0); RED BLOOD COUNT 3.41 10^6/uL (4.30-6.10); RED CELL DISTRIBUTION WIDTH 12.9 % (11.5-14.5); WHITE BLOOD COUNT 4.8 10^3/uL (4.0-10.0)
[2018-01-18 05:51] LABS: PLATELET COUNT, AUTOMATED 81 10^3/uL (150-450)
[2018-01-18 06:06] LABS: ANION GAP 8 MEQ/L (8-16); BLOOD UREA NITROGEN 22 MG/DL (7-18); C REACTIVE PROTEIN QUANTITATIV 6.94 MG/DL (0.00-0.30); CALCIUM LEVEL 7.7 MG/DL (8.8-10.2); CARBON DIOXIDE LEVEL 25 MEQ/L (21-32); CHLORIDE LEVEL 96 MEQ/L (98-107); CREATININE FOR GFR 0.54 MG/DL (0.70-1.30); GLOMERULAR FILTRATION RATE > 60.0 (>49); GLUCOSE, FASTING 130 MG/DL (70-100); SODIUM LEVEL 129 MEQ/L (136-145)
[2018-01-18] MEDS: ATORVASTATIN 10 MG TAB PO (08:58)
[2018-01-18] MEDS: BISACODYL 5 MG TAB PO (08:58)
[2018-01-18] MEDS: SENOKOT S TAB PO ×2 (08:59→20:57)
[2018-01-18] MEDS ORDERED: LIDOCAINE 1% MDV 20ML VIAL SC (10:45)
[2018-01-18] MEDS ORDERED: LIDOCAINE 1% MDV 20ML VIAL As Ordered (14:46)
[2018-01-18 16:12] LABS: APPEARANCE, BODY FLUID CLOTTED (CLEAR); SOURCE, BODY FLUID RT WRIST; SYNOVIAL FLUID COLOR RED (YELLOW)
[2018-01-18 16:20] LABS: CRYSTALS, BODY FLUID NONE SEEN (NONE SEEN); SOURCE, BODY FLUID CRYSTALS RT WRIST
[2018-01-18 18:53] LABS: BASO % 0.4 % (0.0-1.0); EOS % 0.2 % (0.0-3.0); HEMATOCRIT 32.9 % (42.0-52.0); HEMOGLOBIN 11.4 g/dl (13.5-17.5); IMMATURE GRANULOCYTE % 0.8 % (0-3.0); LYMPH # 0.5 10^3/uL (1.5-4.5); LYMPH % 10.4 % (24.0-44.0); MEAN CORPUSCULAR HEMOGLOBIN 34.7 pg (27.0-33.0); MEAN CORPUSCULAR HGB CONC 34.7 g/dl (32.0-36.5); MONO # 0.3 10^3/uL (0.0-0.8); MONO % 6.6 % (0.0-5.0); NEUTROPHILS # 3.9 10^3/uL (1.8-7.7); NEUTROPHILS % 81.6 % (36.0-66.0); RED BLOOD COUNT 3.29 10^6/uL (4.30-6.10); RED CELL DISTRIBUTION WIDTH 13.1 % (11.5-14.5); WHITE BLOOD COUNT 4.7 10^3/uL (4.0-10.0)
[2018-01-18 19:14] LABS: PLATELET COUNT, AUTOMATED 91 10^3/uL (150-450)
[2018-01-18] MEDS: RAMELTEON 8 MG TAB (ROZEREM) PO (20:57)
[2018-01-18 21:33] LABS: URIC ACID, BODY FLUID 2.2 MG/DL (NOT ESTABLISHED)
[2018-01-19] MEDS: KETOROLAC 30 MG/ML VIAL (J1885) IV ×2 (01:12→05:19)
[2018-01-19 03:01] LABS: IMMUNOGLOBULIN A 292 MG/DL (70-400); IMMUNOGLOBULIN G 1090 MG/DL (681-1648); IMMUNOGLOBULIN M 109 MG/DL (40-230)
[2018-01-19] MEDS: PERCOCET 5MG/325MG TAB PO (04:39)
[2018-01-19 06:31] LABS: HEMOGLOBIN 10.5 g/dl (13.5-17.5); MEAN CORPUSCULAR HEMOGLOBIN 34.1 pg (27.0-33.0); MEAN CORPUSCULAR HGB CONC 33.9 g/dl (32.0-36.5); MEAN CORPUSCULAR VOLUME 100.6 fl (80.0-96.0); RED BLOOD COUNT 3.08 10^6/uL (4.30-6.10); RED CELL DISTRIBUTION WIDTH 13.2 % (11.5-14.5); WHITE BLOOD COUNT 2.9 10^3/uL (4.0-10.0)
[2018-01-19 06:32] LABS: PLATELET COUNT, AUTOMATED 81 10^3/uL (150-450)
[2018-01-19 06:47] LABS: ANION GAP 7 MEQ/L (8-16); BLOOD UREA NITROGEN 21 MG/DL (7-18); C REACTIVE PROTEIN QUANTITATIV 3.49 MG/DL (0.00-0.30); CALCIUM LEVEL 7.8 MG/DL (8.8-10.2); CARBON DIOXIDE LEVEL 27 MEQ/L (21-32); CHLORIDE LEVEL 99 MEQ/L (98-107); CREATININE FOR GFR 0.56 MG/DL (0.70-1.30); GLOMERULAR FILTRATION RATE > 60.0 (>49); GLUCOSE, FASTING 128 MG/DL (70-100); POTASSIUM SERUM 4.4 MEQ/L (3.5-5.1); SODIUM LEVEL 133 MEQ/L (136-145)
[2018-01-19] MEDS: ATORVASTATIN 10 MG TAB PO (07:26)
[2018-01-19] MEDS: BISACODYL 5 MG TAB PO (07:26)
[2018-01-19] MEDS: SENOKOT S TAB PO (07:27)
[2018-01-19 07:38] LABS: BODY FLUID RHEUMATOID SCREEN NEGATIVE (NEGATIVE)
[2018-01-19 07:39] LABS: MUCIN CLOT TEST NO CLOT (4+)
[2018-01-19 07:42] LABS: SOURCE, BODY FLUID GLUCOSE OTHER; SOURCE, BODY FLUID URIC ACID OTHER
[2018-01-19 09:44] LABS: HIV 1&2 SCREEN CENTAUR NEGATIVE (NEGATIVE)
== END 2018-01-19 08:45 | disposition short-term general hospital (02) | DRG 603 ==
LOC: M ED 10:28 → M ED INP 13:39 → M MS5PR 16:06
PROC: 0X9J3ZX Drainage of Right Hand, Percutaneous Approach, Diagnostic (ICD-10-PCS; principal; 2018-01-18)
DX: L02.511 Cutaneous abscess of right hand (principal); L03.113 Cellulitis of right upper limb; E87.1 Hypo-osmolality and hyponatremia; R78.81 Bacteremia; G71.00 Muscular dystrophy, unspecified; D69.6 Thrombocytopenia, unspecified; E78.49 Other hyperlipidemia; Z79.899 Other long term (current) drug therapy

== ENCOUNTER 2019-05-16 13:24 | Emergency (ER) | payer MEDICARE ==
[~2019-05-16] VITALS: Ht 182.9 cm; Wt 86.8 kg
[~2019-05-16 13:24] MED LIST changes: +ACET1TAB55 PO; +ARTH650T17 PO; +ATOR1TAB19 PO; -ATORVASTATIN 10 MG TAB PO; +B COTAB3 PO; +BISAC5TA PO; +CEFA2SOL IV; +CEPH500C PO; +COLC1CAP PO; +Docusate Sod/Senna PO; +FLEEENE4 PR; +IBUP-1022 PO; +INDO-16 PO; +KETO30IN4 IV; +LISI-538 PO; +MOBI4TAB PO; +MUCI60TA7 PO; +NAPR-855 PO; +OXYC-517 PO; +OXYCODONE PO; +PERC5TAB12 PO; +PERCOCET PO; +PRED10TA2 PO; +ROZE8TAB16 PO; +VITA200015 PO; +XARE20TA PO; +ZANA4TAB PO
[2019-05-16] MEDS ORDERED: NAPR-855 (13:32)
[2019-05-16] MEDS ORDERED: ISOVUE-370 76% 100ML VIAL (Q9967) As Ordered ONE (14:17)
[2019-05-16 14:18] LABS: BASO % 0.4 % (0.0-1.0); EOS % 0.9 % (0.0-3.0); HEMATOCRIT 36.6 % (42.0-52.0); HEMOGLOBIN 12.5 g/dl (13.5-17.5); LYMPH # 0.6 10^3/uL (1.5-5.0); MEAN CORPUSCULAR HEMOGLOBIN 36.4 pg (27.0-33.0); MEAN CORPUSCULAR HGB CONC 34.2 g/dl (32.0-36.5); MEAN CORPUSCULAR VOLUME 106.7 fl (80.0-96.0); MONO # 0.2 10^3/uL (0.0-0.8); MONO % 9.5 % (0.0-5.0); NEUTROPHILS # 1.5 10^3/uL (1.5-8.5); NEUTROPHILS % 62.8 % (36.0-66.0); RED BLOOD COUNT 3.43 10^6/uL (4.30-6.10); WHITE BLOOD COUNT 2.3 10^3/uL (4.0-10.0)
[2019-05-16 14:19] LABS: PLATELET COUNT, AUTOMATED 35 10^3/uL (150-450)
[2019-05-16] MEDS ORDERED: TRAM50TA2 PO (15:17)
[2019-05-16] MEDS ORDERED: ARTH650T17 PO (15:17)
--- NOTE | 2019-05-16 15:30 | REP ---
CT ANGIOGRAM CHEST: TECHNIQUE: Axial contrast enhanced images from the thoracic inlet to the upper abdomen using 100 mL Isovue 370 intravenous contrast material with multiplanar reformations. There is no CT evidence of pulmonary embolism. There is no thoracic aortic aneurysm or dissection. Heart is not enlarged. There is no pleural or pericardial effusion. There is no mediastinal, hilar, or chest wall lymphadenopathy. Scattered fibroatelectatic change is seen bilaterally more so in the lower lobes. Two calcified granulomas are seen in the left lung. In the visualized portions of the upper abdomen there appears to be cirrhosis of the liver. There is moderate splenomegaly. There is mild perisplenic fluid. There is dilatation of the splenic vein and portal veins compatible with portal hypertension. IMPRESSION: No CT evidence of pulmonary embolism. Chronic changes in the lungs. Cirrhosis and portal hypertension. Moderate splenomegaly. Mild perisplenic ascites. Electronically Signed by Denis Singh MD 05/16/2019 03:37 P
--- NOTE | 2019-05-16 15:35 | REP ---
CT THORACIC SPINE WITH IV CONTRAST: HISTORY: Mid back pain. History of pulmonary embolus. CT CONTRAST DOSE: 75 mL of intravenous Isovue 370. CT FINDINGS: There is good opacification of the pulmonary arterial tree and thoracic aorta and the visualized mediastinal vascular structures show no significant finding. There is some vascular calcification in the left coronary artery. Thoracic vertebral body heights are preserved. No fracture or collapse is seen. No bony destructive lesion is appreciated. There are degenerative disc disease changes with spurs. In addition there are several levels of fairly impressive costovertebral joint osteoarthritis. This is most pronounced bilaterally at T6 and on the right at the T4 costovertebral junction. No fracture or erosive changes seen. No paravertebral soft-tissue mass or edema is appreciated. No pleural effusion is evident. No intraspinal lesion is seen. IMPRESSION: Degenerative disc disease at multiple levels. 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 No acute bony abnormality. Electronically Signed by Wyatt Vu MD 05/16/2019 04:37 P
[2019-05-16 15:43] VITALS: BP 154/97
--- NOTE | 2019-05-18 14:11 | ED PDOC ---
Post-Departure Follow-Up ramirez agarwal faxed formal report of cta chest for fu Lucita Ye MD May 18, 2019 14:11
== END 2019-05-16 15:44 | disposition home or self-care (01) ==
LOC: M ED 13:24
DX: M47.9 Spondylosis, unspecified (principal); I10 Essential (primary) hypertension; G71.02 Facioscapulohumeral muscular dystrophy; Z79.899 Other long term (current) drug therapy
CPT/HCPCS: 36415; 71275; 72128; 80047; 85025; 85049; 85055; 99284; Q9967

== ENCOUNTER → 2020-03-02 | Outpatient (CLI) | payer SELFPAY ==
[~2020-03-02] MED LIST changes: -LISI-538 PO; +LISI20TA33 PO; +NAPR-855; +TRAM50TA2 PO
== END ==
LOC: M LABSMTC 09:12
PROVIDERS: ATTEND Pediatrics
DX: Z20.822 Contact with and (suspected) exposure to COVID-19 (principal)

== ENCOUNTER 2021-03-19 15:15 | Inpatient (IN) | payer MEDICARE ==
[~2021-03-19] VITALS: Ht 180.3 cm; Wt 85.3 kg
[2021-03-19] MEDS: ATORVASTATIN 10 MG TAB PO SCH (21:00)
[2021-03-19 21:51] LABS: BASO % 1.1 % (0.0-1.0); EOS # 0.1 10^3/uL (0.0-0.5); EOS % 1.8 % (0.0-3.0); HEMATOCRIT 35.1 % (42.0-52.0); HEMOGLOBIN 11.9 g/dl (13.5-17.5); LYMPH # 0.9 10^3/uL (1.5-5.0); LYMPH % 31.9 % (24.0-44.0); MEAN CORPUSCULAR HEMOGLOBIN 36.3 pg (27.0-33.0); MEAN CORPUSCULAR HGB CONC 33.9 g/dl (32.0-36.5); MONO # 0.2 10^3/uL (0.0-0.8); MONO % 7.8 % (2.0-8.0); NEUTROPHILS # 1.6 10^3/uL (1.5-8.5); RED BLOOD COUNT 3.28 10^6/uL (4.30-6.10); WHITE BLOOD COUNT 2.8 10^3/uL (4.0-10.0)
[2021-03-19 22:07] LABS: PLATELET COUNT, AUTOMATED 47 10^3/uL (150-450)
[2021-03-19 22:22] LABS: ALBUMIN 3.4 GM/DL (3.2-5.2); ALT/SGPT 82 U/L (12-78); BILIRUBIN,TOTAL 2.8 MG/DL (0.2-1.0); BLOOD UREA NITROGEN 14 MG/DL (7-18); CALCIUM LEVEL 8.7 MG/DL (8.8-10.2); CARBON DIOXIDE LEVEL 24 MEQ/L (21-32); CHLORIDE LEVEL 108 MEQ/L (98-107); CREATININE FOR GFR 0.49 MG/DL (0.70-1.30); GLOMERULAR FILTRATION RATE > 60.0 (>42); GLUCOSE, FASTING 107 MG/DL (70-100); LIPASE 116 U/L (73-393); NT-PRO BNP 155 PG/ML (<125); SODIUM LEVEL 139 MEQ/L (136-145); TOTAL PROTEIN 6.4 GM/DL (6.4-8.2)
[2021-03-19] MEDS ORDERED: D-10TAB2 PO (22:59)
[2021-03-19] MEDS ORDERED: NAPR375T4 PO (22:59)
[2021-03-19] MEDS ORDERED: RA B1TAB2 PO (22:59)
[2021-03-19] MEDS ORDERED: HOME MED LIST COMPLETE! XX SCH (23:00)
[2021-03-19 23:50] LABS: RSV AMPLIFICATION NEGATIVE (NEGATIVE)
[2021-03-20] VITALS (10 sets, daily range): BP systolic 119–143; BP diastolic 59–73
[2021-03-20] MEDS: VITAMIN D 1,000 INTERNATIONAL UNITS TABLET PO SCH (09:00)
[2021-03-20 09:58] LABS: APPEARANCE, BODY FLUID HAZY (CLEAR); ASCITES FL COLOR YELLOW (COLORLESS); SOURCE, BODY FLUID ASCITES
[2021-03-20 10:01] LABS: SPEC. GRAVITY BODY FLUIDS 1.012 (NOT ESTABLISHED)
[2021-03-20 10:55] LABS: SOURCE, BODY FLUID ALBUMIN ASCITES; SOURCE, BODY FLUID GLUCOSE ASCITES; SOURCE, BODY FLUID TOT PROTEIN ASCITES; TOTAL PROTEIN, BODY FLUID 1.6 G/DL (NOT ESTABLISHED)
[2021-03-20 11:32] LABS: INR 1.28; PROTHROMBIN TIME 16.4 SECONDS (12.7-14.5)
[2021-03-20 11:33] LABS: PARTIAL THROMBOPLASTIN TIME 38.9 SECONDS (25.9-37.0)
[2021-03-20] MEDS: FUROSEMIDE 40MG/4ML VIAL (J1940) IV SCH (17:52)
[2021-03-20] MEDS: ATORVASTATIN 10 MG TAB PO SCH (21:15)
[2021-03-21 06:00] VITALS: BP 130/67
[2021-03-21] MEDS ORDERED: LASI40TA9 PO (07:37)
[2021-03-21] MEDS ORDERED: SPIR-10 PO (07:37)
[2021-03-21 08:15] LABS: EOS % 1.4 % (0.0-3.0); HEMATOCRIT 32.7 % (42.0-52.0); HEMOGLOBIN 10.8 g/dl (13.5-17.5); LYMPH # 0.6 10^3/uL (1.5-5.0); MONO # 0.2 10^3/uL (0.0-0.8); MONO % 8.7 % (2.0-8.0); NEUTROPHILS # 1.2 10^3/uL (1.5-8.5); NEUTROPHILS % 58.4 % (36.0-66.0); WHITE BLOOD COUNT 2.1 10^3/uL (4.0-10.0)
[2021-03-21 08:16] LABS: PLATELET COUNT, AUTOMATED 42 10^3/uL (150-450)
[2021-03-21 08:34] LABS: BLOOD UREA NITROGEN 14 MG/DL (7-18); CALCIUM LEVEL 8.3 MG/DL (8.8-10.2); CARBON DIOXIDE LEVEL 28 MEQ/L (21-32); CHLORIDE LEVEL 106 MEQ/L (98-107); CREATININE FOR GFR 0.49 MG/DL (0.70-1.30); GLOMERULAR FILTRATION RATE > 60.0 (>42); GLUCOSE, FASTING 133 MG/DL (70-100); POTASSIUM SERUM 3.7 MEQ/L (3.5-5.1); SODIUM LEVEL 142 MEQ/L (136-145)
[2021-03-21] MEDS: VITAMIN D 1,000 INTERNATIONAL UNITS TABLET PO SCH (08:45)
[2021-03-21] MEDS: FUROSEMIDE 40MG/4ML VIAL (J1940) IV SCH (08:46)
[2021-03-21] MEDS ORDERED: SPIRONOLACTONE 25 MG TAB PO SCH (09:00)
== END 2021-03-21 10:30 | disposition home or self-care (01) | DRG 433 ==
LOC: M ED 15:15 → M ED INP 22:47 → ENRESERV 03-20 14:50 → M MS5PR 03-20 15:15
PROVIDERS: ADMIT Family Medicine; ATTEND Family Medicine
PROC: 0W9G3ZZ Drainage of Peritoneal Cavity, Percutaneous Approach (ICD-10-PCS; principal; 2021-03-20 09:00)
DX: K74.60 Unspecified cirrhosis of liver (principal); R18.8 Other ascites; D61.818 Other pancytopenia; E55.9 Vitamin D deficiency, unspecified; G71.00 Muscular dystrophy, unspecified; E78.5 Hyperlipidemia, unspecified; Z79.899 Other long term (current) drug therapy; Z20.822 Contact with and (suspected) exposure to COVID-19; I10 Essential (primary) hypertension; Z86.711 Personal history of pulmonary embolism; R74.01 Elevation of levels of liver transaminase levels; D69.6 Thrombocytopenia, unspecified; K76.0 Fatty (change of) liver, not elsewhere classified

== ENCOUNTER → 2021-07-09 | Outpatient (CLI) | payer MEDICARE ==
[~2021-07-09] MED LIST changes: +D-10TAB2 PO; +LASI40TA9 PO; +NAPR375T4 PO; +RA B1TAB2 PO; +SPIR-10 PO
[2021-07-09 19:53] LABS: EOS # 0.1 10^3/uL (0.0-0.5); EOS % 3.5 % (0.0-3.0); HEMATOCRIT 34.8 % (42.0-52.0); HEMOGLOBIN 11.6 g/dl (13.5-17.5); LYMPH # 0.9 10^3/uL (1.5-5.0); LYMPH % 21.7 % (24.0-44.0); MEAN CORPUSCULAR HEMOGLOBIN 36.8 pg (27.0-33.0); MEAN CORPUSCULAR HGB CONC 33.3 g/dl (32.0-36.5); MEAN CORPUSCULAR VOLUME 110.5 fl (80.0-96.0); MONO # 0.4 10^3/uL (0.0-0.8); MONO % 9.1 % (2.0-8.0); NEUTROPHILS # 2.6 10^3/uL (1.5-8.5); NEUTROPHILS % 64.4 % (36.0-66.0); RED BLOOD COUNT 3.15 10^6/uL (4.30-6.10)
[2021-07-09 19:54] LABS: PLATELET COUNT, AUTOMATED 53 10^3/uL (150-450)
[2021-07-09 20:13] LABS: HEMOGLOBIN A1c 6.6 %
[2021-07-09 20:17] LABS: ALBUMIN 3.3 GM/DL (3.2-5.2); ALT/SGPT 64 U/L (12-78); BILIRUBIN,DIRECT 0.8 MG/DL (0.0-0.2); BILIRUBIN,TOTAL 2.6 MG/DL (0.2-1.0); BLOOD UREA NITROGEN 14 MG/DL (7-18); CALCIUM LEVEL 8.9 MG/DL (8.8-10.2); CARBON DIOXIDE LEVEL 27 MEQ/L (21-32); CHLORIDE LEVEL 105 MEQ/L (98-107); GLOMERULAR FILTRATION RATE > 60.0 (>42); GLUCOSE, FASTING 199 MG/DL (70-100); IRON (FE) 97 UG/DL (65-175); PERCENT SATURATION 35.8 % (19.7-50.0); POTASSIUM SERUM 3.6 MEQ/L (3.5-5.1); SODIUM LEVEL 140 MEQ/L (136-145); TOTAL IRON BINDING CAPACITY 271 UG/DL (250-450); TOTAL PROTEIN 6.6 GM/DL (6.4-8.2)
[2021-07-09 20:40] LABS: HEPATITIS B SURFACE ANTIGEN NEGATIVE (NEGATIVE)
[2021-07-09 21:06] LABS: HEPATITIS C VIRUS ABY INDEX 0.1 INDEX (<0.8)
[2021-07-09 21:07] LABS: HEPATITIS B CORE ANTIBODY IGM NEGATIVE (NEGATIVE)
== END ==
LOC: M WUC 15:30
PROVIDERS: ATTEND Internal Medicine Gastroenterology
DX: K70.31 Alcoholic cirrhosis of liver with ascites (principal); Z79.899 Other long term (current) drug therapy

== ENCOUNTER → 2021-07-25 | Outpatient (REF) | payer MEDICARE ==
[2021-07-25 16:35] LABS: EOS # 0.1 10^3/uL (0.0-0.5); EOS % 1.6 % (0.0-3.0); HEMOGLOBIN 11.9 g/dl (13.5-17.5); LYMPH # 0.6 10^3/uL (1.5-5.0); LYMPH % 19.6 % (24.0-44.0); MEAN CORPUSCULAR HEMOGLOBIN 35.3 pg (27.0-33.0); MEAN CORPUSCULAR HGB CONC 33.1 g/dl (32.0-36.5); MEAN CORPUSCULAR VOLUME 106.8 fl (80.0-96.0); MONO # 0.2 10^3/uL (0.0-0.8); MONO % 7.7 % (2.0-8.0); NEUTROPHILS # 2.2 10^3/uL (1.5-8.5); NEUTROPHILS % 69.5 % (36.0-66.0); RED BLOOD COUNT 3.37 10^6/uL (4.30-6.10); WHITE BLOOD COUNT 3.1 10^3/uL (4.0-10.0)
[2021-07-25 16:42] LABS: PLATELET COUNT, AUTOMATED 53 10^3/uL (150-450)
[2021-07-25 17:34] LABS: ALBUMIN 3.6 GM/DL (3.2-5.2); ALT/SGPT 62 U/L (12-78); BILIRUBIN,DIRECT 0.7 MG/DL (0.0-0.2); BILIRUBIN,TOTAL 2.1 MG/DL (0.2-1.0); BLOOD UREA NITROGEN 21 MG/DL (7-18); CALCIUM LEVEL 9.5 MG/DL (8.8-10.2); CARBON DIOXIDE LEVEL 26 MEQ/L (21-32); CHLORIDE LEVEL 100 MEQ/L (98-107); CREATININE FOR GFR 0.83 MG/DL (0.70-1.30); GLOMERULAR FILTRATION RATE > 60.0 (>42); GLUCOSE, FASTING 426 MG/DL (70-100); SODIUM LEVEL 136 MEQ/L (136-145); TOTAL PROTEIN 7.2 GM/DL (6.4-8.2)
== END ==
LOC: M LABWUC 15:37
PROVIDERS: ATTEND Internal Medicine Gastroenterology
DX: K74.60 Unspecified cirrhosis of liver (principal)

== ENCOUNTER → 2021-08-17 | Outpatient (CLI) | payer MEDICARE ==
[~2021-08-17] MED LIST changes: +FURO20TA2 PO; +METF500T13 PO; +SPIR50TA4 PO
== END ==
LOC: M LABSMTC 10:13
PROVIDERS: ATTEND Anesthesiology
DX: Z01.818 Encounter for other preprocedural examination (principal); Z11.52 Encounter for screening for COVID-19

== ENCOUNTER 2021-08-21 07:07 | Day surgery (SDC) | payer MEDICARE ==
[~2021-08-21] VITALS: Ht 182.9 cm; Wt 73.2 kg
[~2021-08-21 07:07] MED LIST changes: +NS 1,000 ML IV ONE; +fentaNYL 100 MCG/2 ML INJECTION As Ordered ONE; +propofoL 500 MG/50 ML VIAL As Ordered ONE
[2021-08-21 08:10] LABS: HEMATOCRIT 38.3 % (42.0-52.0); HEMOGLOBIN 12.8 g/dl (13.5-17.5); MEAN CORPUSCULAR HEMOGLOBIN 35.5 pg (27.0-33.0); MEAN CORPUSCULAR HGB CONC 33.4 g/dl (32.0-36.5); MEAN CORPUSCULAR VOLUME 106.1 fl (80.0-96.0); RED BLOOD COUNT 3.61 10^6/uL (4.30-6.10); WHITE BLOOD COUNT 2.4 10^3/uL (4.0-10.0)
[2021-08-21 08:11] LABS: PLATELET COUNT, AUTOMATED 46 10^3/uL (150-450)
[2021-08-21 08:20] LABS: INR 1.32; PROTHROMBIN TIME 16.8 SECONDS (12.7-14.5)
[2021-08-21 08:27] LABS: BLOOD UREA NITROGEN 8 MG/DL (7-18); CALCIUM LEVEL 9.1 MG/DL (8.8-10.2); CARBON DIOXIDE LEVEL 25 MEQ/L (21-32); CHLORIDE LEVEL 107 MEQ/L (98-107); CREATININE FOR GFR 0.51 MG/DL (0.70-1.30); GLOMERULAR FILTRATION RATE > 60.0 (>42); GLUCOSE, FASTING 164 MG/DL (70-100); POTASSIUM SERUM 3.4 MEQ/L (3.5-5.1); SODIUM LEVEL 140 MEQ/L (136-145)
[2021-08-21] MEDS ORDERED: ePHEDrine SULFATE 25 MG/5 ML(5MG/ML) SYRINGE As Ordered ONE (08:58)
[2021-08-21 09:45] VITALS: BP 132/75
== END 2021-08-21 10:20 | disposition home or self-care (01) ==
LOC: M OPP 07:07
PROVIDERS: ATTEND Internal Medicine Gastroenterology
DX: Z12.11 Encounter for screening for malignant neoplasm of colon (principal); K63.5 Polyp of colon; K64.8 Other hemorrhoids; K63.89 Other specified diseases of intestine; K31.89 Other diseases of stomach and duodenum; K74.60 Unspecified cirrhosis of liver; K76.6 Portal hypertension; I85.10 Secondary esophageal varices without bleeding; N18.30 Chronic kidney disease, stage 3 unspecified; G71.02 Facioscapulohumeral muscular dystrophy; Z79.02 Long term (current) use of antithrombotics/antiplatelets; Z79.84 Long term (current) use of oral hypoglycemic drugs; Z79.899 Other long term (current) drug therapy
CPT/HCPCS: 36415; 43239; 45380; 45385; 80048; 85027; 85049; 85055; 85610; 88305; J3010

== ENCOUNTER → 2021-11-17 | Outpatient (CLI) | payer MEDICARE ==
[~2021-11-17] MED LIST changes: -NS 1,000 ML IV ONE; -fentaNYL 100 MCG/2 ML INJECTION As Ordered ONE; -propofoL 500 MG/50 ML VIAL As Ordered ONE
== END ==
LOC: M WUC 14:40
PROVIDERS: ATTEND Internal Medicine Gastroenterology
DX: K74.60 Unspecified cirrhosis of liver (principal); Z53.9 Procedure and treatment not carried out, unspecified reason

== ENCOUNTER → 2021-11-18 | Outpatient (CLI) | payer MEDICARE ==
[2021-11-18 18:01] LABS: EOS # 0.1 10^3/uL (0.0-0.5); EOS % 1.6 % (0.0-3.0); HEMATOCRIT 36.8 % (42.0-52.0); HEMOGLOBIN 11.9 g/dl (13.5-17.5); LYMPH # 0.8 10^3/uL (1.5-5.0); LYMPH % 24.8 % (24.0-44.0); MEAN CORPUSCULAR HEMOGLOBIN 36.2 pg (27.0-33.0); MEAN CORPUSCULAR HGB CONC 32.3 g/dl (32.0-36.5); MEAN CORPUSCULAR VOLUME 111.9 fl (80.0-96.0); MONO # 0.3 10^3/uL (0.0-0.8); MONO % 9.6 % (2.0-8.0); RED BLOOD COUNT 3.29 10^6/uL (4.30-6.10); WHITE BLOOD COUNT 3.1 10^3/uL (4.0-10.0)
[2021-11-18 18:06] LABS: PLATELET COUNT, AUTOMATED 53 10^3/uL (150-450)
[2021-11-18 18:19] LABS: INR 1.31; PROTHROMBIN TIME 16.5 SECONDS (12.5-14.5)
[2021-11-18 18:46] LABS: ALBUMIN 3.4 GM/DL (3.2-5.2); ALT/SGPT 66 U/L (12-78); BILIRUBIN,DIRECT 0.8 MG/DL (0.0-0.2); BILIRUBIN,TOTAL 2.5 MG/DL (0.2-1.0); BLOOD UREA NITROGEN 19 MG/DL (7-18); CALCIUM LEVEL 8.9 MG/DL (8.8-10.2); CARBON DIOXIDE LEVEL 25 MEQ/L (21-32); CHLORIDE LEVEL 108 MEQ/L (98-107); GLOMERULAR FILTRATION RATE > 60.0 (>42); GLUCOSE, FASTING 131 MG/DL (70-100); POTASSIUM SERUM 3.9 MEQ/L (3.5-5.1); SODIUM LEVEL 140 MEQ/L (136-145); TOTAL PROTEIN 6.7 GM/DL (6.4-8.2)
== END ==
LOC: M WUC 15:20
PROVIDERS: ATTEND Physician Assistant Medical
DX: K74.60 Unspecified cirrhosis of liver (principal); K75.81 Nonalcoholic steatohepatitis (NASH)

== ENCOUNTER → 2021-12-16 | Outpatient (CLI) | payer MEDICARE ==
[2021-12-16 17:11] LABS: BASO % 0.8 % (0.0-1.0); EOS # 0.1 10^3/uL (0.0-0.5); EOS % 1.5 % (0.0-3.0); HEMATOCRIT 35.3 % (42.0-52.0); HEMOGLOBIN 11.5 g/dl (13.5-17.5); LYMPH # 0.9 10^3/uL (1.5-5.0); LYMPH % 22.8 % (24.0-44.0); MEAN CORPUSCULAR HEMOGLOBIN 36.1 pg (27.0-33.0); MEAN CORPUSCULAR HGB CONC 32.6 g/dl (32.0-36.5); MEAN CORPUSCULAR VOLUME 110.7 fl (80.0-96.0); MONO # 0.4 10^3/uL (0.0-0.8); MONO % 9.4 % (2.0-8.0); NEUTROPHILS # 2.6 10^3/uL (1.5-8.5); NEUTROPHILS % 65.5 % (36.0-66.0); RED BLOOD COUNT 3.19 10^6/uL (4.30-6.10)
[2021-12-16 17:15] LABS: ALBUMIN 3.4 GM/DL (3.2-5.2); ALT/SGPT 70 U/L (12-78); BLOOD UREA NITROGEN 16 MG/DL (7-18); CALCIUM LEVEL 8.7 MG/DL (8.8-10.2); CARBON DIOXIDE LEVEL 25 MEQ/L (21-32); CHLORIDE LEVEL 103 MEQ/L (98-107); CREATININE FOR GFR 0.71 MG/DL (0.70-1.30); GLOMERULAR FILTRATION RATE > 60.0 (>42); GLUCOSE, FASTING 104 MG/DL (70-100); POTASSIUM SERUM 3.2 MEQ/L (3.5-5.1); SODIUM LEVEL 136 MEQ/L (136-145); TOTAL PROTEIN 6.9 GM/DL (6.4-8.2)
[2021-12-16 18:00] LABS: INR 1.37; PROTHROMBIN TIME 17.1 SECONDS (12.5-14.5)
== END ==
LOC: M WUC 14:37
PROVIDERS: ATTEND Internal Medicine Gastroenterology
DX: K75.81 Nonalcoholic steatohepatitis (NASH) (principal)

== ENCOUNTER → 2021-12-26 | Outpatient (CLI) | payer MEDICARE | LOC: M RAD 07:42 | PROVIDERS: ATTEND Internal Medicine Gastroenterology | DX: K75.81 Nonalcoholic steatohepatitis (NASH) (principal); K74.60 Unspecified cirrhosis of liver; R18.8 Other ascites ==

== ENCOUNTER → 2022-01-05 | Outpatient (CLI) | payer MEDICARE ==
[~2022-01-05] MED LIST changes: +K-TA10TA2 PO; +TORS20TA2 PO
[2022-01-05 17:50] LABS: CARBON DIOXIDE LEVEL 26 MMOL/L (20-31); CHLORIDE LEVEL 100 MMOL/L (98-107); POTASSIUM SERUM 3.1 MMOL/L (3.5-5.1); SODIUM LEVEL 140 MMOL/L (136-145)
[2022-01-05 17:54] LABS: CALCIUM LEVEL 8.3 MG/DL (8.3-10.6)
[2022-01-05 17:56] LABS: BLOOD UREA NITROGEN 18 MG/DL (9-23); GLUCOSE, FASTING 151 MG/DL (74-106)
[2022-01-05 17:58] LABS: CREATININE FOR GFR 0.59 MG/DL (0.70-1.30); GLOMERULAR FILTRATION RATE > 60.0 (>42)
== END ==
LOC: M WUC 12:45
PROVIDERS: ATTEND Internal Medicine Gastroenterology
DX: R18.8 Other ascites (principal); K76.6 Portal hypertension

== ENCOUNTER → 2022-01-06 | Outpatient (CLI) | payer MEDICARE ==
[2022-01-06 13:32] VITALS: BP 122/66
[2022-01-06 13:43] LABS: ASCITES FL COLOR YELLOW (COLORLESS); SOURCE, BODY FLUID ASCITES
[2022-01-06 13:44] LABS: APPEARANCE, BODY FLUID HAZY (CLEAR)
[2022-01-06 14:04] LABS: SOURCE, BODY FLUID ALBUMIN ASCITES
[2022-01-06 14:12] LABS: SOURCE, BODY FLUID TOT PROTEIN ASCITES; TOTAL PROTEIN, BODY FLUID < 2.0 G/DL (NOT ESTABLISHED)
== END ==
LOC: M IRPRO 10:55
PROVIDERS: ATTEND Internal Medicine Gastroenterology
DX: K75.81 Nonalcoholic steatohepatitis (NASH) (principal)

== ENCOUNTER → 2022-01-26 | Outpatient (CLI) | payer MEDICARE ==
[2022-01-26 16:23] LABS: EOS # 0.1 10^3/uL (0.0-0.5); EOS % 1.3 % (0.0-3.0); HEMATOCRIT 35.1 % (42.0-52.0); HEMOGLOBIN 11.3 g/dl (13.5-17.5); LYMPH # 0.8 10^3/uL (1.5-5.0); LYMPH % 20.3 % (24.0-44.0); MEAN CORPUSCULAR HGB CONC 32.2 g/dl (32.0-36.5); MEAN CORPUSCULAR VOLUME 108.7 fl (80.0-96.0); MONO # 0.3 10^3/uL (0.0-0.8); MONO % 8.6 % (2.0-8.0); NEUTROPHILS # 2.6 10^3/uL (1.5-8.5); NEUTROPHILS % 68.5 % (36.0-66.0); RED BLOOD COUNT 3.23 10^6/uL (4.30-6.10); WHITE BLOOD COUNT 3.9 10^3/uL (4.0-10.0)
[2022-01-26 16:33] LABS: PLATELET COUNT, AUTOMATED 76 10^3/uL (150-450)
[2022-01-26 16:37] LABS: INR 1.3; PROTHROMBIN TIME 16.4 SECONDS (12.5-14.5)
[2022-01-26 16:38] LABS: ALBUMIN 2.9 G/DL (3.2-5.2); ALKALINE PHOSPHATASE 163 U/L (46-116); ALT/SGPT 79 U/L (7.0-40); AST/SGOT 97 U/L (<34); BILIRUBIN,TOTAL 3.1 MG/DL (0.3-1.2); BLOOD UREA NITROGEN 20 MG/DL (9-23); CALCIUM LEVEL 8.2 MG/DL (8.3-10.6); CARBON DIOXIDE LEVEL 25 MMOL/L (20-31); CHLORIDE LEVEL 100 MMOL/L (98-107); CREATININE FOR GFR 0.66 MG/DL (0.70-1.30); GLOMERULAR FILTRATION RATE > 60.0 (>42); GLUCOSE, FASTING 138 MG/DL (74-106); POTASSIUM SERUM 3.6 MMOL/L (3.5-5.1); SODIUM LEVEL 136 MMOL/L (136-145); TOTAL PROTEIN 6.3 G/DL (5.7-8.2)
== END ==
LOC: M WUC 13:51
PROVIDERS: ATTEND Internal Medicine Gastroenterology
DX: K75.81 Nonalcoholic steatohepatitis (NASH) (principal)

== ENCOUNTER → 2022-02-27 | Outpatient (CLI) | payer MEDICARE ==
[2022-02-27] VITALS (10 sets, daily range): BP systolic 107–129; BP diastolic 59–68
[~2022-02-27] MED LIST changes: +LIDOCAINE 1% MDV 20ML VIAL As Ordered ONE
== END ==
LOC: M IRPRO 11:38
PROVIDERS: ATTEND Internal Medicine Gastroenterology
DX: R18.8 Other ascites (principal)
CPT/HCPCS: 49083; 96365; P9047

== ENCOUNTER → 2022-03-10 | Outpatient (CLI) | payer MEDICARE ==
[~2022-03-10] MED LIST changes: -LIDOCAINE 1% MDV 20ML VIAL As Ordered ONE
[2022-03-10 16:35] LABS: ALBUMIN 3.2 G/DL (3.2-5.2); ALKALINE PHOSPHATASE 166 U/L (46-116); ALT/SGPT 75 U/L (7.0-40); AST/SGOT 86 U/L (<34); BLOOD UREA NITROGEN 30 MG/DL (9-23); CALCIUM LEVEL 8.5 MG/DL (8.3-10.6); CARBON DIOXIDE LEVEL 24 MMOL/L (20-31); CHLORIDE LEVEL 100 MMOL/L (98-107); CREATININE FOR GFR 0.76 MG/DL (0.70-1.30); GLOMERULAR FILTRATION RATE > 60.0 (>42); GLUCOSE, FASTING 181 MG/DL (74-106); POTASSIUM SERUM 3.1 MMOL/L (3.5-5.1); SODIUM LEVEL 136 MMOL/L (136-145); TOTAL PROTEIN 6.5 G/DL (5.7-8.2)
[2022-03-10 16:46] LABS: BASO # 0.1 10^3/uL (0.0-0.2); BASO % 1.1 % (0.0-1.0); EOS # 0.1 10^3/uL (0.0-0.5); EOS % 1.1 % (0.0-3.0); HEMATOCRIT 32.6 % (42.0-52.0); HEMOGLOBIN 10.9 g/dl (13.5-17.5); LYMPH # 0.8 10^3/uL (1.5-5.0); LYMPH % 18.8 % (24.0-44.0); MEAN CORPUSCULAR HEMOGLOBIN 37.2 pg (27.0-33.0); MEAN CORPUSCULAR HGB CONC 33.4 g/dl (32.0-36.5); MEAN CORPUSCULAR VOLUME 111.3 fl (80.0-96.0); MONO # 0.4 10^3/uL (0.0-0.8); MONO % 9.3 % (2.0-8.0); NEUTROPHILS # 3.1 10^3/uL (1.5-8.5); NEUTROPHILS % 69.2 % (36.0-66.0); RED BLOOD COUNT 2.93 10^6/uL (4.30-6.10); WHITE BLOOD COUNT 4.4 10^3/uL (4.0-10.0)
[2022-03-10 17:31] LABS: PLATELET COUNT, AUTOMATED 79 10^3/uL (150-450)
== END ==
LOC: M WUC 13:43
PROVIDERS: ATTEND Internal Medicine Gastroenterology
DX: K75.81 Nonalcoholic steatohepatitis (NASH) (principal)

== ENCOUNTER → 2022-03-17 | Outpatient (POV) | payer MEDICARE ==
[~2022-03-17] VITALS: Ht 182.9 cm; Wt 77.7 kg
[2022-03-17 15:30] VITALS: BP 118/68
== END ==
LOC: M IRPOV 15:03
PROVIDERS: ATTEND Radiology Diagnostic Radiology
DX: G71.02 Facioscapulohumeral muscular dystrophy (principal); D69.6 Thrombocytopenia, unspecified; E11.9 Type 2 diabetes mellitus without complications; E80.6 Other disorders of bilirubin metabolism; K72.90 Hepatic failure, unspecified without coma; K74.69 Other cirrhosis of liver; K75.81 Nonalcoholic steatohepatitis (NASH); R16.1 Splenomegaly, not elsewhere classified; R18.8 Other ascites; Z79.84 Long term (current) use of oral hypoglycemic drugs; Z79.899 Other long term (current) drug therapy; Z99.3 Dependence on wheelchair

== ENCOUNTER → 2022-04-01 | Outpatient (CLI) | payer MEDICARE ==
[2022-04-01 18:27] LABS: HEMOGLOBIN A1c 4.4 % (4.0-6.0)
== END ==
LOC: M WUC 14:02
PROVIDERS: ATTEND Physician Assistant
DX: E11.9 Type 2 diabetes mellitus without complications (principal)

== ENCOUNTER → 2022-05-01 | Outpatient (CLI) | payer MEDICARE ==
[2022-05-01] VITALS (8 sets, daily range): BP systolic 98–117; BP diastolic 54–68
[~2022-05-01] MED LIST changes: +AMIL25TA PO; +CYAN100050 PO; +LIDOCAINE 1% MDV 20ML VIAL As Ordered ONE; +VITA400T10 PO
== END ==
LOC: M IRPRO 10:46
PROVIDERS: ATTEND Internal Medicine Gastroenterology
DX: R18.8 Other ascites (principal); K74.60 Unspecified cirrhosis of liver
CPT/HCPCS: 49083; 96365; P9047

== ENCOUNTER → 2022-06-01 | Outpatient (CLI) | payer MEDICARE ==
[2022-06-01] VITALS (8 sets, daily range): BP systolic 97–121; BP diastolic 52–73
[~2022-06-01] MED LIST changes: -LIDOCAINE 1% MDV 20ML VIAL As Ordered ONE
== END ==
LOC: M IRPRO 13:47
PROVIDERS: ATTEND Internal Medicine Gastroenterology
DX: R18.8 Other ascites (principal); K74.60 Unspecified cirrhosis of liver
CPT/HCPCS: 49083; 96365; P9047

== ENCOUNTER → 2022-06-17 | Outpatient (CLI) | payer MEDICARE ==
[2022-06-17 16:33] LABS: HEMATOCRIT 31.7 % (42.0-52.0); HEMOGLOBIN 10.6 g/dl (13.5-17.5); MEAN CORPUSCULAR HEMOGLOBIN 36.6 pg (27.0-33.0); MEAN CORPUSCULAR HGB CONC 33.4 g/dl (32.0-36.5); MEAN CORPUSCULAR VOLUME 109.3 fl (80.0-96.0); WHITE BLOOD COUNT 4.5 10^3/uL (4.0-10.0)
[2022-06-17 16:35] LABS: PLATELET COUNT, AUTOMATED 77 10^3/uL (150-450)
[2022-06-17 16:59] LABS: ALBUMIN 2.9 G/DL (3.2-5.2); ALKALINE PHOSPHATASE 200 U/L (46-116); ALT/SGPT 94 U/L (7.0-40); AST/SGOT 97 U/L (<34); BILIRUBIN,TOTAL 2.8 MG/DL (0.3-1.2); BLOOD UREA NITROGEN 30 MG/DL (9-23); CALCIUM LEVEL 8.1 MG/DL (8.3-10.6); CARBON DIOXIDE LEVEL 24 MMOL/L (20-31); CHLORIDE LEVEL 102 MMOL/L (98-107); CHOLESTEROL LEVEL 117 MG/DL (<200); CHOLESTEROL RISK RATIO 2.46 (<5); GLOMERULAR FILTRATION RATE > 60.0 (>42); GLUCOSE, FASTING 96 MG/DL (74-106); HDL CHOLESTEROL 47.5 MG/DL (>40); LDL CHOLESTEROL 44.1 MG/DL (<100); NON-HDL-C 69.5 MG/DL; POTASSIUM SERUM 3.5 MMOL/L (3.5-5.1); SODIUM LEVEL 136 MMOL/L (136-145); TOTAL PROTEIN 5.9 G/DL (5.7-8.2); TRIGLYCERIDES LEVEL 127 MG/DL (<150)
[2022-06-17 17:41] LABS: HEMOGLOBIN A1c 4.6 % (4.0-6.0)
== END ==
LOC: M WUC 14:55
PROVIDERS: ATTEND Physician Assistant
DX: E78.2 Mixed hyperlipidemia (principal); I10 Essential (primary) hypertension; E11.9 Type 2 diabetes mellitus without complications

== ENCOUNTER → 2022-06-24 | Outpatient (CLI) | payer MEDICARE ==
[2022-06-24] VITALS (9 sets, daily range): BP systolic 95–111; BP diastolic 49–68
== END ==
LOC: M IRPRO 13:10
PROVIDERS: ATTEND Internal Medicine Gastroenterology
DX: R18.8 Other ascites (principal); K74.60 Unspecified cirrhosis of liver
CPT/HCPCS: 49083; 96365; P9047

== ENCOUNTER → 2022-07-17 | Outpatient (CLI) | payer MEDICARE ==
[2022-07-17] VITALS (10 sets, daily range): BP systolic 91–101; BP diastolic 54–63; TEMP 98.4; O2SAT 96–97
[~2022-07-17] MED LIST changes: +CYAN-1 PO; -CYAN100050 PO; -K-TA10TA2 PO; +POTA-165 PO
== END ==
LOC: M IRPRO 12:37
PROVIDERS: ATTEND Internal Medicine Gastroenterology
DX: R18.8 Other ascites (principal); K74.60 Unspecified cirrhosis of liver
CPT/HCPCS: 49083; 96365; P9047

== ENCOUNTER → 2022-08-07 | Outpatient (CLI) | payer MEDICARE ==
[2022-08-07] VITALS (9 sets, daily range): BP systolic 88–102; BP diastolic 50–58; TEMP 97.9–98.5; O2SAT 97–100
[2022-08-07 14:04] LABS: HEMATOCRIT 29.1 % (42.0-52.0); HEMOGLOBIN 9.9 g/dl (13.5-17.5); MEAN CORPUSCULAR HEMOGLOBIN 37.2 pg (27.0-33.0); MEAN CORPUSCULAR VOLUME 109.4 fl (80.0-96.0); RED BLOOD COUNT 2.66 10^6/uL (4.30-6.10); WHITE BLOOD COUNT 4.3 10^3/uL (4.0-10.0)
[2022-08-07 14:11] LABS: PLATELET COUNT, AUTOMATED 79 10^3/uL (150-450)
[2022-08-07 14:41] LABS: INR 1.27; PROTHROMBIN TIME 16.2 SECONDS (12.5-14.5)
== END ==
LOC: M IRPRO 13:13
PROVIDERS: ATTEND Internal Medicine Gastroenterology
DX: R18.8 Other ascites (principal); K74.60 Unspecified cirrhosis of liver
CPT/HCPCS: 49083; 85027; 85049; 85055; 85610; 96365; P9047

== ENCOUNTER 2022-08-19 06:18 | Day surgery (SDC) | payer MEDICARE ==
[~2022-08-19] VITALS: Ht 182.9 cm; Wt 71.2 kg
[~2022-08-19 06:18] MED LIST changes: +BSS IRRIG/VANCO(10MG)/TOBRA(5MG)/EPINEPH(1:1000-0.5CC)500ML BAG-ORONLY IR ONE; +LIDOCAINE 3.5 % 1ML OPHTH TOPICAL GEL OU ONE; +OFLOXACIN 0.3 % (OCUFLOX) OPTH SOL 5ML OD ONE; +PHENYLEPHRINE 10% OPHTH SOL 5ML OD PRN
[2022-08-19] MEDS ORDERED: LIDOCAINE 1% SDV 5ML VIAL As Ordered ONE (06:32)
[2022-08-19] MEDS ORDERED: CEFUROXIME 1MG/0.1ML INTRACAMERAL INJ As Ordered ONE (06:32)
[2022-08-19] MEDS: TROPICAMIDE 1% OPHTH SOLN 15ML OD SCH ×3 (06:46→06:56)
[2022-08-19] MEDS: PHENYLEPHRINE 2.5% OPHTH SOL 2ML OD SCH ×3 (06:46→06:56)
[2022-08-19] MEDS: CYCLOPENTOLATE 1% OPHTH SOLN 2ML BTL OD SCH ×3 (06:46→06:56)
[2022-08-19] MEDS ORDERED: MIDAZOLAM INJ 2MG/2ML VIAL As Ordered ONE (07:15)
[2022-08-19] MEDS ORDERED: fentaNYL 100 MCG/2 ML INJECTION As Ordered ONE (07:15)
[2022-08-19] MEDS ORDERED: PHENYLephrine 500MCG 5ML (100MCG/ML) SYRINGE As Ordered ONE (07:53)
[2022-08-19 08:06] VITALS: BP 113/60; TEMP 97.2; O2SAT 97
== END 2022-08-19 08:24 | disposition home or self-care (01) ==
LOC: M SDC 06:18
PROVIDERS: ATTEND Ophthalmology
DX: H25.11 Age-related nuclear cataract, right eye (principal); E11.9 Type 2 diabetes mellitus without complications; E78.5 Hyperlipidemia, unspecified; I10 Essential (primary) hypertension; R60.0 Localized edema; Z86.711 Personal history of pulmonary embolism; N18.30 Chronic kidney disease, stage 3 unspecified; N40.0 Benign prostatic hyperplasia without lower urinary tract symptoms; K76.9 Liver disease, unspecified; Z79.899 Other long term (current) drug therapy
CPT/HCPCS: 66984; J0697; J2250; J2371; J3010; V2632

== ENCOUNTER 2022-09-02 06:03 | Day surgery (SDC) | payer MEDICARE ==
[~2022-09-02] VITALS: Ht 182.9 cm; Wt 65.3 kg
[~2022-09-02 06:03] MED LIST changes: +CYCLOPENTOLATE 1% OPHTH SOLN 2ML BTL OS SCH; -OFLOXACIN 0.3 % (OCUFLOX) OPTH SOL 5ML OD ONE; +OFLOXACIN 0.3 % (OCUFLOX) OPTH SOL 5ML OS ONE; -PHENYLEPHRINE 10% OPHTH SOL 5ML OD PRN; +PHENYLEPHRINE 10% OPHTH SOL 5ML OS PRN; +PHENYLEPHRINE 2.5% OPHTH SOL 2ML OS SCH; +TROPICAMIDE 1% OPHTH SOLN 15ML OS SCH
[2022-09-02] MEDS ORDERED: LIDOCAINE 1% SDV 5ML VIAL As Ordered ONE (06:35)
[2022-09-02] MEDS ORDERED: CEFUROXIME 1MG/0.1ML INTRACAMERAL INJ As Ordered ONE (06:35)
[2022-09-02] MEDS ORDERED: MIDAZOLAM INJ 2MG/2ML VIAL As Ordered ONE (07:19)
[2022-09-02 08:36] VITALS: BP 103/59; TEMP 97.1; O2SAT 95
== END 2022-09-02 08:45 | disposition home or self-care (01) ==
LOC: M SDC 06:03
PROVIDERS: ATTEND Ophthalmology
DX: H25.12 Age-related nuclear cataract, left eye (principal); I10 Essential (primary) hypertension; E78.5 Hyperlipidemia, unspecified; Z86.711 Personal history of pulmonary embolism; Z79.899 Other long term (current) drug therapy; E11.9 Type 2 diabetes mellitus without complications; R60.0 Localized edema; N18.30 Chronic kidney disease, stage 3 unspecified; N40.0 Benign prostatic hyperplasia without lower urinary tract symptoms
CPT/HCPCS: 66984; J0697; J2250; V2632

== ENCOUNTER → 2022-09-11 | Outpatient (CLI) | payer MEDICARE ==
[2022-09-11] VITALS (10 sets, daily range): BP systolic 85–102; BP diastolic 42–59; TEMP 97.5; O2SAT 96–98
[~2022-09-11] MED LIST changes: -BSS IRRIG/VANCO(10MG)/TOBRA(5MG)/EPINEPH(1:1000-0.5CC)500ML BAG-ORONLY IR ONE; -CYCLOPENTOLATE 1% OPHTH SOLN 2ML BTL OS SCH; -LIDOCAINE 3.5 % 1ML OPHTH TOPICAL GEL OU ONE; -OFLOXACIN 0.3 % (OCUFLOX) OPTH SOL 5ML OS ONE; -PHENYLEPHRINE 10% OPHTH SOL 5ML OS PRN; -PHENYLEPHRINE 2.5% OPHTH SOL 2ML OS SCH; -TROPICAMIDE 1% OPHTH SOLN 15ML OS SCH
== END ==
LOC: M IRPRO 12:46
PROVIDERS: ATTEND Internal Medicine Gastroenterology
DX: R18.8 Other ascites (principal); K74.60 Unspecified cirrhosis of liver
CPT/HCPCS: 49083; 96365; P9047

== ENCOUNTER → 2022-09-25 | Outpatient (CLI) | payer MEDICARE ==
[2022-09-25] VITALS (9 sets, daily range): BP systolic 94–108; BP diastolic 52–59; TEMP 97.8–98.3; O2SAT 95–99
== END ==
LOC: M IRPRO 09:33
PROVIDERS: ATTEND Internal Medicine Gastroenterology
DX: R18.8 Other ascites (principal); K74.60 Unspecified cirrhosis of liver; K75.81 Nonalcoholic steatohepatitis (NASH)
CPT/HCPCS: 49083; 96365; P9047

== ENCOUNTER → 2022-10-09 | Outpatient (CLI) | payer MEDICARE ==
[2022-10-09] VITALS (7 sets, daily range): BP systolic 90–102; BP diastolic 51–59; TEMP 97.2–97.6; O2SAT 98
[2022-10-09 14:01] LABS: BASO % 0.8 % (0.0-1.0); EOS # 0.1 10^3/uL (0.0-0.5); EOS % 1.2 % (0.0-3.0); HEMATOCRIT 31.3 % (42.0-52.0); HEMOGLOBIN 10.4 g/dl (13.5-17.5); LYMPH # 0.6 10^3/uL (1.5-5.0); MEAN CORPUSCULAR HGB CONC 33.2 g/dl (32.0-36.5); MEAN CORPUSCULAR VOLUME 108.3 fl (80.0-96.0); MONO # 0.6 10^3/uL (0.0-0.8); MONO % 12.4 % (2.0-8.0); NEUTROPHILS # 3.6 10^3/uL (1.5-8.5); NEUTROPHILS % 72.4 % (36.0-66.0); RED BLOOD COUNT 2.89 10^6/uL (4.30-6.10); WHITE BLOOD COUNT 4.9 10^3/uL (4.0-10.0)
[2022-10-09 14:09] LABS: PLATELET COUNT, AUTOMATED 83 10^3/uL (150-450)
[2022-10-09 14:21] LABS: ALBUMIN 3.1 G/DL (3.2-5.2); ALKALINE PHOSPHATASE 152 U/L (46-116); ALT/SGPT 81 U/L (7.0-40); AST/SGOT 72 U/L (<34); BILIRUBIN,TOTAL 2.5 MG/DL (0.3-1.2); BLOOD UREA NITROGEN 41 MG/DL (9-23); CALCIUM LEVEL 8.5 MG/DL (8.3-10.6); CARBON DIOXIDE LEVEL 26 MMOL/L (20-31); CHLORIDE LEVEL 106 MMOL/L (98-107); GLOMERULAR FILTRATION RATE > 60.0 (>42); GLUCOSE, FASTING 112 MG/DL (74-106); POTASSIUM SERUM 3.9 MMOL/L (3.5-5.1); SODIUM LEVEL 139 MMOL/L (136-145); TOTAL PROTEIN 5.8 G/DL (5.7-8.2)
[2022-10-09 15:10] LABS: INR 1.45; PROTHROMBIN TIME 17.2 SECONDS (12.5-14.5)
== END ==
LOC: M IRPRO 13:15
PROVIDERS: ATTEND Internal Medicine Gastroenterology
DX: R18.8 Other ascites (principal); K74.60 Unspecified cirrhosis of liver; K75.81 Nonalcoholic steatohepatitis (NASH)
CPT/HCPCS: 49083; 80053; 82105; 85025; 85049; 85055; 85610; 96365; P9047

== ENCOUNTER → 2022-10-27 | Outpatient (CLI) | payer MEDICARE ==
[2022-10-27] VITALS (8 sets, daily range): BP systolic 93–100; BP diastolic 51–58; TEMP 97.8; O2SAT 96–98
== END ==
LOC: M IRPRO 08:30
PROVIDERS: ATTEND Internal Medicine Gastroenterology
DX: R18.8 Other ascites (principal); K74.60 Unspecified cirrhosis of liver; K75.81 Nonalcoholic steatohepatitis (NASH)
CPT/HCPCS: 49083; 96365; P9047

== ENCOUNTER → 2022-11-19 | Outpatient (CLI) | payer MEDICARE ==
[2022-11-19] VITALS (9 sets, daily range): BP systolic 83–100; BP diastolic 50–63; TEMP 98.8; O2SAT 97–99
== END ==
LOC: M IRPRO 13:12
PROVIDERS: ATTEND Internal Medicine Gastroenterology
DX: R18.8 Other ascites (principal); K74.60 Unspecified cirrhosis of liver; K75.81 Nonalcoholic steatohepatitis (NASH)
CPT/HCPCS: 36561; 96365; P9047

== ENCOUNTER → 2022-12-03 | Outpatient (CLI) | payer MEDICARE ==
[2022-12-03] VITALS (8 sets, daily range): BP systolic 91–98; BP diastolic 51–60; TEMP 97.5–98.3; O2SAT 96–99
== END ==
LOC: M IRPRO 10:21
PROVIDERS: ATTEND Internal Medicine Gastroenterology
DX: R18.8 Other ascites (principal); K74.60 Unspecified cirrhosis of liver; K75.81 Nonalcoholic steatohepatitis (NASH)
CPT/HCPCS: 49083; 96365; P9047

== ENCOUNTER → 2022-12-17 | Outpatient (CLI) | payer MEDICARE ==
[2022-12-17] VITALS (8 sets, daily range): BP systolic 91–103; BP diastolic 53–67; TEMP 97.9–98.1; O2SAT 98–99
== END ==
LOC: M IRPRO 11:59
PROVIDERS: ATTEND Internal Medicine Gastroenterology
DX: R18.8 Other ascites (principal); K74.60 Unspecified cirrhosis of liver; K75.81 Nonalcoholic steatohepatitis (NASH)
CPT/HCPCS: 49083; 96365; P9047

== ENCOUNTER → 2022-12-28 | Outpatient (CLI) | payer MEDICARE ==
[2022-12-28] VITALS (9 sets, daily range): BP systolic 87–96; BP diastolic 46–59; TEMP 98; O2SAT 97–99
== END ==
LOC: M IRPRO 14:46
PROVIDERS: ATTEND Internal Medicine Gastroenterology
DX: R18.8 Other ascites (principal); K74.60 Unspecified cirrhosis of liver; K75.81 Nonalcoholic steatohepatitis (NASH)
CPT/HCPCS: 49083; 96365; P9047

== ENCOUNTER 2023-01-11 10:43 | Observation (INO) | payer MEDICARE ==
[~2023-01-11] VITALS: Ht 182.9 cm; Wt 54.4 kg
[2023-01-11 11:25] LABS: VENOUS HCO3 21.8 MMOL/L (23.0-27.0); VENOUS O2 SATURATION 47.3 % (60.0-80.0); VENOUS PARTIAL PRESSURE CO2 37.8 mmHg (38.0-50.0); VENOUS PARTIAL PRESSURE O2 27.6 mmHg (30.0-50.0); VENOUS PH 7.378 UNITS (7.330-7.430); VENOUS STANDARD HCO3 21.1 MMOL/L; VENOUS TOTAL CO2 22.9 MMOL/L (24.0-28.0)
[2023-01-11] MEDS ORDERED: NS 250 ML IV ONE (11:30)
[2023-01-11 11:31] LABS: BASO % 0.5 % (0.0-1.0); EOS # 0.1 10^3/uL (0.0-0.5); EOS % 1.2 % (0.0-3.0); HEMOGLOBIN 9.7 g/dl (13.5-17.5); LYMPH # 0.5 10^3/uL (1.5-5.0); LYMPH % 8.2 % (24.0-44.0); MEAN CORPUSCULAR HEMOGLOBIN 35.3 pg (27.0-33.0); MEAN CORPUSCULAR HGB CONC 33.4 g/dl (32.0-36.5); MEAN CORPUSCULAR VOLUME 105.5 fl (80.0-96.0); MONO # 0.5 10^3/uL (0.0-0.8); MONO % 8.5 % (2.0-8.0); NEUTROPHILS # 4.7 10^3/uL (1.5-8.5); NEUTROPHILS % 81.3 % (36.0-66.0); RED BLOOD COUNT 2.75 10^6/uL (4.30-6.10); WHITE BLOOD COUNT 5.8 10^3/uL (4.0-10.0)
[2023-01-11 11:38] LABS: PLATELET COUNT, AUTOMATED 81 10^3/uL (150-450)
[2023-01-11 11:56] LABS: ETHYL ALCOHOL (ETHANOL) < 0.003 % (0.000-0.010)
[2023-01-11 11:57] LABS: ALBUMIN 3.4 G/DL (3.2-5.2); ALKALINE PHOSPHATASE 126 U/L (46-116); ALT/SGPT 81 U/L (7.0-40); AST/SGOT 72 U/L (<34); BILIRUBIN,DIRECT 1.5 MG/DL (<0.4); BILIRUBIN,TOTAL 2.9 MG/DL (0.3-1.2); BLOOD UREA NITROGEN 68 MG/DL (9-23); CALCIUM LEVEL 8.2 MG/DL (8.3-10.6); CARBON DIOXIDE LEVEL 22 MMOL/L (20-31); CHLORIDE LEVEL 100 MMOL/L (98-107); CK-MB VALUE MASS 21.8 NG/ML (<3.6); CPK CREATINE PHOSPHOKINASE 217 U/L (46-171); CREATININE FOR GFR 1.27 MG/DL (0.70-1.30); GLOMERULAR FILTRATION RATE 59.3 (>42); GLUCOSE, FASTING 135 MG/DL (74-106); MB/CK RELATIVE INDEX 10.04 (< OR =4); POTASSIUM SERUM 4.2 MMOL/L (3.5-5.1); SALICYLATE LEVEL < 3.0 MG/DL (<30); SODIUM LEVEL 130 MMOL/L (136-145); TOTAL PROTEIN 5.9 G/DL (5.7-8.2)
[2023-01-11 11:58] LABS: THYROID STIMULATING HORMONE 3.257 uIU/ML (0.55-4.78)
[2023-01-11 12:08] LABS: RSV AMPLIFICATION NEGATIVE (NEGATIVE)
[2023-01-11 12:36] LABS: OSMOLALITY SERUM 294 MOSM/KG (280-301)
[2023-01-11] MEDS ORDERED: MOM 30ML SUSPENSION UDC PO PRN (16:10)
[2023-01-11] MEDS ORDERED: MAALOX 30 ML SUSP *UDC PO PRN (16:10)
[2023-01-11] MEDS ORDERED: HEPARIN SOD (PORCINE) 5000UNITS/ML 1ML VIAL/SYRINGE SC SCH (16:10)
[2023-01-11] MEDS ORDERED: ACETAMINOPHEN TAB 650MG DOSE (2X325MG) PO PRN (16:10)
[2023-01-11] MEDS ORDERED: HOME MED LIST COMPLETE! XX SCH (16:30)
[2023-01-11] MEDS ORDERED: traMADol 50 MG TAB PO ONE (20:55)
[2023-01-11] MEDS: ATORVASTATIN 10 MG TAB PO SCH (21:06)
[2023-01-11] MEDS: DOCUSATE SODIUM 100MG CAPSULE PO SCH (21:07)
[2023-01-11 23:20] VITALS: BP 93/52; TEMP 97.1; O2SAT 96
[2023-01-12] VITALS (10 sets, daily range): BP systolic 87–103; BP diastolic 49–59; TEMP 97.4–97.7; O2SAT 94–97
[2023-01-12 05:44] LABS: BASO % 0.7 % (0.0-1.0); EOS # 0.1 10^3/uL (0.0-0.5); EOS % 1.8 % (0.0-3.0); HEMATOCRIT 23.4 % (42.0-52.0); LYMPH # 0.7 10^3/uL (1.5-5.0); MEAN CORPUSCULAR HEMOGLOBIN 35.7 pg (27.0-33.0); MEAN CORPUSCULAR HGB CONC 34.2 g/dl (32.0-36.5); MEAN CORPUSCULAR VOLUME 104.5 fl (80.0-96.0); MONO # 0.6 10^3/uL (0.0-0.8); NEUTROPHILS # 3.1 10^3/uL (1.5-8.5); NEUTROPHILS % 69.3 % (36.0-66.0); RED BLOOD COUNT 2.24 10^6/uL (4.30-6.10); WHITE BLOOD COUNT 4.5 10^3/uL (4.0-10.0)
[2023-01-12 05:46] LABS: PLATELET COUNT, AUTOMATED 71 10^3/uL (150-450)
[2023-01-12 06:16] LABS: ALBUMIN 2.8 G/DL (3.2-5.2); ALKALINE PHOSPHATASE 109 U/L (46-116); ALT/SGPT 67 U/L (7.0-40); AST/SGOT 60 U/L (<34); BILIRUBIN,TOTAL 2.3 MG/DL (0.3-1.2); BLOOD UREA NITROGEN 66 MG/DL (9-23); CALCIUM LEVEL 8.2 MG/DL (8.3-10.6); CARBON DIOXIDE LEVEL 20 MMOL/L (20-31); CHLORIDE LEVEL 103 MMOL/L (98-107); CREATININE FOR GFR 1.14 MG/DL (0.70-1.30); GLOMERULAR FILTRATION RATE > 60.0 (>42); GLUCOSE, FASTING 111 MG/DL (74-106); MAGNESIUM LEVEL 2.5 MG/DL (1.8-2.4); POTASSIUM SERUM 4.5 MMOL/L (3.5-5.1); SODIUM LEVEL 133 MMOL/L (136-145)
[2023-01-12] MEDS: DOCUSATE SODIUM 100MG CAPSULE PO SCH ×2 (08:44→21:42)
[2023-01-12] MEDS: MIDODRINE 5 MG TAB PO SCH ×3 (08:44→15:33)
[2023-01-12] MEDS: VITAMIN D (CHOLECALCIFEROL) 400 INTERNATIONAL UNITS TAB PO SCH (08:44)
[2023-01-12 14:08] LABS: APPEARANCE, BODY FLUID CLEAR (CLEAR); ASCITES FL COLOR YELLOW (COLORLESS); SOURCE, BODY FLUID ASCITES
[2023-01-12 14:31] LABS: SOURCE, BODY FLUID ALBUMIN ASCITES
[2023-01-12 14:36] LABS: SOURCE, BODY FLUID GLUCOSE ASCITES
[2023-01-12 14:39] LABS: SOURCE, BODY FLUID TOT PROTEIN ASCITES; TOTAL PROTEIN, BODY FLUID < 2.0 G/DL (NOT ESTABLISHED)
[2023-01-12] MEDS ORDERED: MIDODRINE 5 MG TAB PO ONE (18:15)
[2023-01-12] MEDS: ATORVASTATIN 10 MG TAB PO SCH (21:42)
[2023-01-13] VITALS: BP 102/57; TEMP 98.1; O2SAT 95
[2023-01-13 04:00] VITALS: BP 100/52; TEMP 97.8; O2SAT 90
[2023-01-13 06:12] LABS: BASO # 0.1 10^3/uL (0.0-0.2); BASO % 0.9 % (0.0-1.0); EOS # 0.1 10^3/uL (0.0-0.5); EOS % 1.9 % (0.0-3.0); HEMATOCRIT 25.4 % (42.0-52.0); HEMOGLOBIN 8.7 g/dl (13.5-17.5); LYMPH # 0.5 10^3/uL (1.5-5.0); LYMPH % 8.5 % (24.0-44.0); MEAN CORPUSCULAR HEMOGLOBIN 36.1 pg (27.0-33.0); MEAN CORPUSCULAR HGB CONC 34.3 g/dl (32.0-36.5); MEAN CORPUSCULAR VOLUME 105.4 fl (80.0-96.0); MONO # 0.6 10^3/uL (0.0-0.8); MONO % 11.2 % (2.0-8.0); NEUTROPHILS # 4.1 10^3/uL (1.5-8.5); NEUTROPHILS % 77.3 % (36.0-66.0); RED BLOOD COUNT 2.41 10^6/uL (4.30-6.10); WHITE BLOOD COUNT 5.3 10^3/uL (4.0-10.0)
[2023-01-13 06:15] LABS: PLATELET COUNT, AUTOMATED 70 10^3/uL (150-450)
[2023-01-13 06:26] LABS: ALBUMIN 2.9 G/DL (3.2-5.2); ALKALINE PHOSPHATASE 116 U/L (46-116); ALT/SGPT 78 U/L (7.0-40); AST/SGOT 76 U/L (<34); BILIRUBIN,TOTAL 2.8 MG/DL (0.3-1.2); BLOOD UREA NITROGEN 59 MG/DL (9-23); CALCIUM LEVEL 8.3 MG/DL (8.3-10.6); CARBON DIOXIDE LEVEL 20 MMOL/L (20-31); CHLORIDE LEVEL 106 MMOL/L (98-107); CREATININE FOR GFR 1.13 MG/DL (0.70-1.30); GLOMERULAR FILTRATION RATE > 60.0 (>42); GLUCOSE, FASTING 139 MG/DL (74-106); MAGNESIUM LEVEL 2.6 MG/DL (1.8-2.4); POTASSIUM SERUM 4.7 MMOL/L (3.5-5.1); SODIUM LEVEL 135 MMOL/L (136-145); TOTAL PROTEIN 5.1 G/DL (5.7-8.2)
[2023-01-13 07:51] VITALS: BP 99/54; TEMP 98.5; O2SAT 92
[2023-01-13] MEDS: DOCUSATE SODIUM 100MG CAPSULE PO SCH (09:08)
[2023-01-13] MEDS: VITAMIN D (CHOLECALCIFEROL) 400 INTERNATIONAL UNITS TAB PO SCH (09:08)
[2023-01-13] MEDS: MIDODRINE 5 MG TAB PO SCH ×3 (09:08→15:48)
[2023-01-13] MEDS ORDERED: MIDO5TA PO (12:07)
[2023-01-13 12:31] VITALS: BP 102/57; TEMP 97.1; O2SAT 92
[2023-01-13] MEDS ORDERED: AMOX875T2 PO (15:22)
== END 2023-01-13 16:04 | disposition home health service (06) ==
LOC: EDBD 10:43 → M ED 10:43 → M ED INP 16:08 → M PCU 23:07
PROVIDERS: ADMIT Internal Medicine; ATTEND Internal Medicine
DX: K74.69 Other cirrhosis of liver (principal); G71.02 Facioscapulohumeral muscular dystrophy; W19.XXXA Unspecified fall, initial encounter; Y92.002 Bathroom of unspecified non-institutional (private) residence as the place of occurrence of the external cause; R74.01 Elevation of levels of liver transaminase levels; D69.6 Thrombocytopenia, unspecified; E78.5 Hyperlipidemia, unspecified; I95.9 Hypotension, unspecified; E87.1 Hypo-osmolality and hyponatremia; D53.1 Other megaloblastic anemias, not elsewhere classified; S09.90XA Unspecified injury of head, initial encounter; Z79.899 Other long term (current) drug therapy; N39.0 Urinary tract infection, site not specified
CPT/HCPCS: 36415; 49083; 70450; 71045; 72110; 72125; 72170; 73130; 80048; 80053; 80076; 80143; 81001; 82042; 82077; 82140; 82533; 82550; 82553; 82803; 82945; 83605; 83735; 83930; 84157; 84443; 84484; 85025; 85049; 85055; 87040; 87070; 87088; 87102; 87116; 87186; 87205; 87206; 87631; 89051; 93005; 93041; 94760; 96374; 97162; 97165; 97530; 97535; 99285; G0378; P9047

== ENCOUNTER → 2023-01-27 | Outpatient (CLI) | payer MEDICARE ==
[2023-01-27] VITALS (11 sets, daily range): BP systolic 94–100; BP diastolic 51–58; TEMP 98.2; O2SAT 96–99
[~2023-01-27] MED LIST changes: +AMOX875T2 PO; +MIDO5TA PO
== END ==
LOC: M IRPRO 12:09
PROVIDERS: ATTEND Internal Medicine Gastroenterology
DX: R18.8 Other ascites (principal); K74.60 Unspecified cirrhosis of liver; K75.81 Nonalcoholic steatohepatitis (NASH)
CPT/HCPCS: 49083; 96365; P9047

== ENCOUNTER → 2023-02-10 | Outpatient (CLI) | payer MEDICARE ==
[2023-02-10] VITALS (7 sets, daily range): BP systolic 91–101; BP diastolic 52–56; TEMP 98.5; O2SAT 98–99
== END ==
LOC: M IRPRO 12:23
PROVIDERS: ATTEND Internal Medicine Gastroenterology
DX: R18.8 Other ascites (principal); K74.60 Unspecified cirrhosis of liver; K75.81 Nonalcoholic steatohepatitis (NASH)
CPT/HCPCS: 49083; 96365; P9047

== ENCOUNTER → 2023-02-24 | Outpatient (CLI) | payer MEDICARE ==
[2023-02-24] VITALS (10 sets, daily range): BP systolic 86–97; BP diastolic 43–58; TEMP 97.6; O2SAT 96–99
== END ==
LOC: M IRPRO 12:40
PROVIDERS: ATTEND Internal Medicine Gastroenterology
DX: R18.8 Other ascites (principal); K74.60 Unspecified cirrhosis of liver; K75.81 Nonalcoholic steatohepatitis (NASH)
CPT/HCPCS: 49083; 96365; P9047

== ENCOUNTER → 2023-03-10 | Outpatient (CLI) | payer MEDICARE ==
[2023-03-10] VITALS (8 sets, daily range): BP systolic 89–102; BP diastolic 50–62; TEMP 97.6; O2SAT 99–100
[2023-03-10 13:19] LABS: PLATELET COUNT, AUTOMATED 77 10^3/uL (150-450)
[2023-03-10 13:29] LABS: INR 1.42; PROTHROMBIN TIME 16.9 SECONDS (12.5-14.5)
== END ==
LOC: M IRPRO 12:37
PROVIDERS: ATTEND Internal Medicine Gastroenterology
DX: R18.8 Other ascites (principal); K74.60 Unspecified cirrhosis of liver; K75.81 Nonalcoholic steatohepatitis (NASH)
CPT/HCPCS: 49083; 85027; 85049; 85055; 85610; 96365; P9047

== ENCOUNTER → 2023-03-19 | Outpatient (CLI) | payer MEDICARE ==
[2023-03-19] VITALS (7 sets, daily range): BP systolic 85–96; BP diastolic 45–55; TEMP 97.8–98.2; O2SAT 96–100
== END ==
LOC: M IRPRO 10:48
PROVIDERS: ATTEND Internal Medicine Gastroenterology
DX: R18.8 Other ascites (principal); K74.60 Unspecified cirrhosis of liver; K75.81 Nonalcoholic steatohepatitis (NASH)
CPT/HCPCS: 49083; 96365; P9047

== ENCOUNTER → 2023-03-23 | Outpatient (CLI) | payer MEDICARE | LOC: M RAD 09:14 | PROVIDERS: ATTEND Internal Medicine Gastroenterology | DX: R18.8 Other ascites (principal); K74.60 Unspecified cirrhosis of liver ==

== ENCOUNTER → 2023-04-01 | Outpatient (CLI) | payer MEDICARE ==
[2023-04-01] VITALS (9 sets, daily range): BP systolic 84–109; BP diastolic 43–68; TEMP 97.8–98.5; O2SAT 98–100
== END ==
LOC: M IRPRO 10:48
PROVIDERS: ATTEND Internal Medicine Gastroenterology
DX: R18.8 Other ascites (principal); K74.60 Unspecified cirrhosis of liver; K75.81 Nonalcoholic steatohepatitis (NASH)
CPT/HCPCS: 49083; 96365; P9047

== ENCOUNTER → 2023-04-14 | Outpatient (CLI) | payer MEDICARE ==
[2023-04-14] VITALS (9 sets, daily range): BP systolic 90–102; BP diastolic 50–59; TEMP 98.3; O2SAT 98–100
== END ==
LOC: M IRPRO 11:24
PROVIDERS: ATTEND Internal Medicine Gastroenterology
DX: R18.8 Other ascites (principal); K74.60 Unspecified cirrhosis of liver; K75.81 Nonalcoholic steatohepatitis (NASH)
CPT/HCPCS: 49083; 96365; P9047

== ENCOUNTER → 2023-04-21 | Outpatient (CLI) | payer MEDICARE ==
[2023-04-21] VITALS (10 sets, daily range): BP systolic 94–108; BP diastolic 49–62; TEMP 97.8; O2SAT 98–100
== END ==
LOC: M IRPRO 11:02
PROVIDERS: ATTEND Internal Medicine Gastroenterology
DX: R18.8 Other ascites (principal); K74.60 Unspecified cirrhosis of liver; K75.81 Nonalcoholic steatohepatitis (NASH)
CPT/HCPCS: 49083; 96365; P9047

== ENCOUNTER → 2023-04-28 | Outpatient (CLI) | payer MEDICARE ==
[2023-04-28] VITALS (9 sets, daily range): BP systolic 83–96; BP diastolic 49–56; TEMP 98.4; O2SAT 98–100
== END ==
LOC: M IRPRO 10:46
PROVIDERS: ATTEND Internal Medicine Gastroenterology
DX: R18.8 Other ascites (principal); K74.60 Unspecified cirrhosis of liver; K75.81 Nonalcoholic steatohepatitis (NASH)
CPT/HCPCS: 49083; 96365; P9047

== ENCOUNTER → 2023-05-06 | Outpatient (CLI) | payer MEDICARE ==
[2023-05-06] VITALS (9 sets, daily range): BP systolic 85–90; BP diastolic 44–53; TEMP 97.8–98.2; O2SAT 97–99
[2023-05-06 11:08] LABS: PLATELET COUNT, AUTOMATED 90 10^3/uL (150-450)
[2023-05-06 11:17] LABS: INR 1.56; PROTHROMBIN TIME 18.2 SECONDS (12.5-14.5)
== END ==
LOC: M IRPRO 10:03
PROVIDERS: ATTEND Internal Medicine Gastroenterology
DX: R18.8 Other ascites (principal); K74.60 Unspecified cirrhosis of liver; K75.81 Nonalcoholic steatohepatitis (NASH)
CPT/HCPCS: 49083; 85027; 85049; 85055; 85610; 96365; P9047

== ENCOUNTER → 2023-05-13 | Outpatient (CLI) | payer MEDICARE ==
[2023-05-13] VITALS (9 sets, daily range): BP systolic 87–101; BP diastolic 47–56; TEMP 97.5; O2SAT 98–100
== END ==
LOC: M IRPRO 09:57
PROVIDERS: ATTEND Internal Medicine Gastroenterology
DX: R18.8 Other ascites (principal); K74.60 Unspecified cirrhosis of liver; K75.81 Nonalcoholic steatohepatitis (NASH)
CPT/HCPCS: 49083; 96365; P9047

== ENCOUNTER → 2023-05-20 | Outpatient (CLI) | payer MEDICARE ==
[2023-05-20] VITALS (10 sets, daily range): BP systolic 84–102; BP diastolic 49–57; TEMP 98.4; O2SAT 97–99
== END ==
LOC: M IRPRO 13:58
PROVIDERS: ATTEND Internal Medicine Gastroenterology
DX: R18.8 Other ascites (principal); K74.60 Unspecified cirrhosis of liver; K75.81 Nonalcoholic steatohepatitis (NASH)
CPT/HCPCS: 49083; 96365; P9047

== ENCOUNTER → 2023-05-27 | Outpatient (CLI) | payer MEDICARE ==
[2023-05-27] VITALS (8 sets, daily range): BP systolic 83–100; BP diastolic 49–59; TEMP 97.6–97.8; O2SAT 99
== END ==
LOC: M IRPRO 13:05
PROVIDERS: ATTEND Internal Medicine Gastroenterology
DX: R18.8 Other ascites (principal); K74.60 Unspecified cirrhosis of liver; K75.81 Nonalcoholic steatohepatitis (NASH)
CPT/HCPCS: 49083; 96365; P9047

== ENCOUNTER → 2023-06-03 | Outpatient (CLI) | payer MEDICARE ==
[2023-06-03] VITALS (8 sets, daily range): BP systolic 81–106; BP diastolic 43–61; TEMP 97.2–98.2; O2SAT 99
== END ==
LOC: M IRPRO 09:41
PROVIDERS: ATTEND Internal Medicine Gastroenterology
DX: R18.8 Other ascites (principal); K74.60 Unspecified cirrhosis of liver; K75.81 Nonalcoholic steatohepatitis (NASH)
CPT/HCPCS: 49083; 96365; P9047

== ENCOUNTER → 2023-06-10 | Outpatient (CLI) | payer MEDICARE ==
[2023-06-10] VITALS (12 sets, daily range): BP systolic 80–105; BP diastolic 37–56; TEMP 99.4; O2SAT 97–99
[2023-06-10 13:43] LABS: PLATELET COUNT, AUTOMATED 69 10^3/uL (150-450)
[2023-06-10 13:51] LABS: INR 1.6; PROTHROMBIN TIME 18.5 SECONDS (12.5-14.5)
== END ==
LOC: M IRPRO 12:56
PROVIDERS: ATTEND Internal Medicine Gastroenterology
DX: R18.8 Other ascites (principal); K74.60 Unspecified cirrhosis of liver; K75.81 Nonalcoholic steatohepatitis (NASH)
CPT/HCPCS: 49083; 85027; 85049; 85055; 85610; 96365; P9047

== ENCOUNTER → 2023-06-17 | Outpatient (CLI) | payer MEDICARE ==
[2023-06-17] VITALS (10 sets, daily range): BP systolic 89–101; BP diastolic 50–61; TEMP 99; O2SAT 97–100
== END ==
LOC: M IRPRO 12:38
PROVIDERS: ATTEND Internal Medicine Gastroenterology
DX: R18.8 Other ascites (principal); K74.60 Unspecified cirrhosis of liver; K75.81 Nonalcoholic steatohepatitis (NASH)
CPT/HCPCS: 49083; 96365; P9047

== ENCOUNTER → 2023-06-24 | Outpatient (CLI) | payer MEDICARE ==
[2023-06-24] VITALS (10 sets, daily range): BP systolic 86–110; BP diastolic 52–62; TEMP 97.6; O2SAT 98–99
== END ==
LOC: M IRPRO 13:13
PROVIDERS: ATTEND Internal Medicine Gastroenterology
DX: R18.8 Other ascites (principal); K74.60 Unspecified cirrhosis of liver; K75.81 Nonalcoholic steatohepatitis (NASH)
CPT/HCPCS: 49083; 96365; P9047

== ENCOUNTER → 2023-07-01 | Outpatient (CLI) | payer MEDICARE ==
[2023-07-01] VITALS (8 sets, daily range): BP systolic 80–92; BP diastolic 42–53; TEMP 97.7–98.1; O2SAT 98–100
== END ==
LOC: M IRPRO 12:23
PROVIDERS: ATTEND Internal Medicine Gastroenterology
DX: R18.8 Other ascites (principal); K74.60 Unspecified cirrhosis of liver; K75.81 Nonalcoholic steatohepatitis (NASH)
CPT/HCPCS: 49083; 96365; P9047

== ENCOUNTER → 2023-07-08 | Outpatient (CLI) | payer MEDICARE ==
[2023-07-08] VITALS (9 sets, daily range): BP systolic 129–138; BP diastolic 57–61; TEMP 98.3; O2SAT 98–99
== END ==
LOC: M IRPRO 11:28
PROVIDERS: ATTEND Internal Medicine Gastroenterology
DX: R18.8 Other ascites (principal); K74.60 Unspecified cirrhosis of liver; K75.81 Nonalcoholic steatohepatitis (NASH)
CPT/HCPCS: 49083; 96365; P9047

== ENCOUNTER → 2023-07-15 | Outpatient (CLI) | payer MEDICARE ==
[2023-07-15] VITALS (9 sets, daily range): BP systolic 77–91; BP diastolic 45–51; TEMP 99.3; O2SAT 97–98
[~2023-07-15] MED LIST changes: +THERTAB52 PO
== END ==
LOC: M IRPRO 12:14
PROVIDERS: ATTEND Internal Medicine Gastroenterology
DX: R18.8 Other ascites (principal); K74.60 Unspecified cirrhosis of liver; K75.81 Nonalcoholic steatohepatitis (NASH)
CPT/HCPCS: 49083; 96365; P9047

== ENCOUNTER → 2023-07-22 | Outpatient (CLI) | payer MEDICARE ==
[2023-07-22 13:42] VITALS: BP 90/53; TEMP 98.2; O2SAT 98
[2023-07-22 13:45] VITALS: BP 91/49; TEMP 98.4; O2SAT 98
[2023-07-22 13:51] VITALS: BP 88/47; TEMP 98.1; O2SAT 98
[2023-07-22 13:54] VITALS: BP 88/47; TEMP 98; O2SAT 99
[2023-07-22 13:58] VITALS: BP 86/47; TEMP 98; O2SAT 99
[2023-07-22 14:11] VITALS: BP 98/54; O2SAT 99
== END ==
LOC: M IRPRO 12:23
PROVIDERS: ATTEND Internal Medicine Gastroenterology
DX: R18.8 Other ascites (principal); K74.60 Unspecified cirrhosis of liver; K75.81 Nonalcoholic steatohepatitis (NASH)
CPT/HCPCS: 49083; 96365; P9047

== ENCOUNTER → 2023-07-29 | Outpatient (CLI) | payer MEDICARE ==
[2023-07-29] VITALS (9 sets, daily range): BP systolic 86–96; BP diastolic 51–59; TEMP 97.3; O2SAT 98–99
== END ==
LOC: M IRPRO 12:25
PROVIDERS: ATTEND Internal Medicine Gastroenterology
DX: R18.8 Other ascites (principal); K74.60 Unspecified cirrhosis of liver; K75.81 Nonalcoholic steatohepatitis (NASH)
CPT/HCPCS: 49083; 96365; P9047

== ENCOUNTER 2023-08-02 09:05 | Day surgery (SDC) | payer MEDICARE ==
[~2023-08-02] VITALS: Ht 182.9 cm; Wt 54.4 kg
[~2023-08-02 09:05] MED LIST changes: +NS 1,000 ML IV ONE
[2023-08-02] MEDS ORDERED: propofoL 200 MG/20 ML VIAL As Ordered ONE (12:09)
[2023-08-02 12:35] VITALS: TEMP 97.3
[2023-08-02 13:00] VITALS: BP 93/50; O2SAT 95
== END 2023-08-02 13:25 | disposition home or self-care (01) ==
LOC: M OPP 09:05
PROVIDERS: ATTEND Internal Medicine Gastroenterology
DX: K31.89 Other diseases of stomach and duodenum (principal); K76.6 Portal hypertension; I85.00 Esophageal varices without bleeding; E11.9 Type 2 diabetes mellitus without complications; I10 Essential (primary) hypertension; Z79.899 Other long term (current) drug therapy; Z87.891 Personal history of nicotine dependence

== ENCOUNTER → 2023-08-11 | Outpatient (CLI) | payer MEDICARE ==
[2023-08-11] VITALS (9 sets, daily range): BP systolic 86–101; BP diastolic 45–57; TEMP 97.8; O2SAT 96–97
[~2023-08-11] MED LIST changes: -NS 1,000 ML IV ONE
== END ==
LOC: M IRPRO 11:49
PROVIDERS: ATTEND Internal Medicine Gastroenterology
DX: R18.8 Other ascites (principal); K74.60 Unspecified cirrhosis of liver; K75.81 Nonalcoholic steatohepatitis (NASH)
CPT/HCPCS: 49083; 96365; P9047

== ENCOUNTER → 2023-08-19 | Outpatient (CLI) | payer MEDICARE ==
[2023-08-19] VITALS (9 sets, daily range): BP systolic 84–100; BP diastolic 44–52; O2SAT 97–100
== END ==
LOC: M IRPRO 12:19
PROVIDERS: ATTEND Internal Medicine Gastroenterology
DX: R18.8 Other ascites (principal); K74.60 Unspecified cirrhosis of liver; K75.81 Nonalcoholic steatohepatitis (NASH)
CPT/HCPCS: 49083; 96365; P9047

== ENCOUNTER → 2023-08-26 | Outpatient (CLI) | payer MEDICARE ==
[2023-08-26] VITALS (10 sets, daily range): BP systolic 86–101; BP diastolic 45–54; TEMP 97.5; O2SAT 97–99
== END ==
LOC: M IRPRO 12:47
PROVIDERS: ATTEND Internal Medicine Gastroenterology
DX: R18.8 Other ascites (principal); K74.60 Unspecified cirrhosis of liver; K75.81 Nonalcoholic steatohepatitis (NASH)
CPT/HCPCS: 49083; 96365; P9047

== ENCOUNTER → 2023-09-02 | Outpatient (CLI) | payer MEDICARE ==
[2023-09-02] VITALS (9 sets, daily range): BP systolic 87–98; BP diastolic 47–52; TEMP 97.8; O2SAT 98–99
== END ==
LOC: M IRPRO 11:58
PROVIDERS: ATTEND Internal Medicine Gastroenterology
DX: R18.8 Other ascites (principal); K74.60 Unspecified cirrhosis of liver; K75.81 Nonalcoholic steatohepatitis (NASH)
CPT/HCPCS: 49083; 96365; P9047

== ENCOUNTER → 2023-09-09 | Outpatient (CLI) | payer MEDICARE ==
[2023-09-09] VITALS (9 sets, daily range): BP systolic 76–91; BP diastolic 44–55; TEMP 97.2; O2SAT 98–100
== END ==
LOC: M IRPRO 10:38
PROVIDERS: ATTEND Internal Medicine Gastroenterology
DX: R18.8 Other ascites (principal); K74.60 Unspecified cirrhosis of liver; K75.81 Nonalcoholic steatohepatitis (NASH)
CPT/HCPCS: 49083; 96365; P9047

== ENCOUNTER → 2023-09-17 | Outpatient (CLI) | payer MEDICARE ==
[2023-09-17 11:45] VITALS: TEMP 98.3
[2023-09-17 13:44] VITALS: BP 82/43; O2SAT 98
== END ==
LOC: M IRPRO 11:13
PROVIDERS: ATTEND Internal Medicine Gastroenterology
DX: R18.8 Other ascites (principal); K74.60 Unspecified cirrhosis of liver; K75.81 Nonalcoholic steatohepatitis (NASH)

== ENCOUNTER → 2023-09-23 | Outpatient (CLI) | payer MEDICARE ==
[2023-09-23 12:35] VITALS: TEMP 97.5
[2023-09-23 13:15] VITALS: BP 88/46; O2SAT 98
== END ==
LOC: M IRPRO 12:27
PROVIDERS: ATTEND Internal Medicine Gastroenterology
DX: R18.8 Other ascites (principal); K74.60 Unspecified cirrhosis of liver; K75.81 Nonalcoholic steatohepatitis (NASH)

== ENCOUNTER → 2023-09-30 | Outpatient (CLI) | payer MEDICARE ==
[~2023-09-30] MED LIST changes: +AMIL5TAB4 PO; +MULT-40 PO; +OMEG-28 PO; +TRAZ-252 PO; +VITA100093 PO
[2023-09-30 13:20] VITALS: TEMP 97.6
[2023-09-30 13:41] VITALS: BP 86/45; O2SAT 96
== END ==
LOC: M IRPRO 12:41
PROVIDERS: ATTEND Internal Medicine Gastroenterology
DX: R18.8 Other ascites (principal); K74.60 Unspecified cirrhosis of liver; K75.81 Nonalcoholic steatohepatitis (NASH)

== ENCOUNTER 2023-10-01 02:54 | Inpatient (IN) | payer MEDICARE ==
[~2023-10-01 02:54] MED LIST changes: -MULT-40 PO
[2023-10-01 03:22] LABS: VENOUS BASE EXCESS -7.9 (-2.0-2.0); VENOUS HCO3 17.4 MMOL/L (23.0-27.0); VENOUS O2 SATURATION 97.9 % (60.0-80.0); VENOUS PARTIAL PRESSURE CO2 34.6 mmHg (38.0-50.0); VENOUS PARTIAL PRESSURE O2 125.9 mmHg (30.0-50.0); VENOUS TOTAL CO2 18.5 MMOL/L (24.0-28.0)
[2023-10-01 03:25] VITALS: O2SAT 93
[2023-10-01 03:27] LABS: BASO # 0.1 10^3/uL (0.0-0.2); BASO % 0.8 % (0.0-1.0); EOS # 0.1 10^3/uL (0.0-0.5); EOS % 1.1 % (0.0-3.0); HEMATOCRIT 25.1 % (42.0-52.0); HEMOGLOBIN 8.5 g/dl (13.5-17.5); LYMPH # 0.6 10^3/uL (1.5-5.0); LYMPH % 8.4 % (24.0-44.0); MEAN CORPUSCULAR HEMOGLOBIN 35.4 pg (27.0-33.0); MEAN CORPUSCULAR HGB CONC 33.9 g/dl (32.0-36.5); MEAN CORPUSCULAR VOLUME 104.6 fl (80.0-96.0); MONO # 0.7 10^3/uL (0.0-0.8); MONO % 10.4 % (2.0-8.0); NEUTROPHILS # 5.2 10^3/uL (1.5-8.5); PLATELET COUNT, AUTOMATED 106 10^3/uL (150-450); WHITE BLOOD COUNT 6.6 10^3/uL (4.0-10.0)
[2023-10-01] MEDS: IPRATROPIUM 0.5MG/ALBUTEROL 2.5MG INH SOL UD 3ML (DUONEB) NEB PRN (03:29)
[2023-10-01 04:00] LABS: ALBUMIN 3.6 G/DL (3.2-5.2); BILIRUBIN,TOTAL 1.9 MG/DL (0.3-1.2); CALCIUM LEVEL 8.3 MG/DL (8.3-10.6); CREATININE FOR GFR 1.6 MG/DL (0.70-1.30); GLOMERULAR FILTRATION RATE 45.5 (>42); MAGNESIUM LEVEL 2.7 MG/DL (1.8-2.4); MB/CK RELATIVE INDEX 18.68 (< OR =4); POTASSIUM SERUM 3.6 MMOL/L (3.5-5.1); TOTAL PROTEIN 5.9 G/DL (5.7-8.2)
[2023-10-01] MEDS: IPRATROPIUM 0.5MG/ALBUTEROL 2.5MG INH SOL UD 3ML (DUONEB) NEB ONE (04:02)
[2023-10-01] MEDS ORDERED: MULT-40 PO (05:30)
[2023-10-01] MEDS ORDERED: HOME MED LIST COMPLETE! XX SCH (05:30)
[2023-10-01] MEDS: IPRATROPIUM 0.5MG/ALBUTEROL 2.5MG INH SOL UD 3ML (DUONEB) NEB SCH (07:14)
[2023-10-01 07:33] LABS: ABG BASE EXCESS -6.6 (-2.0-2.0); ABG HCO3 17.3 MMOL/L (22.0-26.0); ABG O2 SATURATION 96.1 % (95.0-99.0); ABG PARTIAL PRESSURE CO2 28.6 mmHg (35.0-45.0); ABG PARTIAL PRESSURE O2 92.5 mmHg (75.0-100.0); ABG TOTAL CO2 18.2 MMOL/L (23.0-31.0); ABG pH (ARTERIAL) 7.399 UNITS (7.350-7.450)
[2023-10-01 07:54] LABS: BASO % 0.2 % (0.0-1.0); HEMATOCRIT 24.9 % (42.0-52.0); HEMOGLOBIN 8.4 g/dl (13.5-17.5); LYMPH # 0.2 10^3/uL (1.5-5.0); LYMPH % 2.9 % (24.0-44.0); MEAN CORPUSCULAR HEMOGLOBIN 35.6 pg (27.0-33.0); MEAN CORPUSCULAR HGB CONC 33.7 g/dl (32.0-36.5); MEAN CORPUSCULAR VOLUME 105.5 fl (80.0-96.0); MONO # 0.1 10^3/uL (0.0-0.8); MONO % 1.5 % (2.0-8.0); RED BLOOD COUNT 2.36 10^6/uL (4.30-6.10); WHITE BLOOD COUNT 5.2 10^3/uL (4.0-10.0)
[2023-10-01 07:57] LABS: ALBUMIN 3.5 G/DL (3.2-5.2); CALCIUM LEVEL 8.2 MG/DL (8.3-10.6); CREATININE FOR GFR 1.62 MG/DL (0.70-1.30); GLOMERULAR FILTRATION RATE 44.8 (>42); MAGNESIUM LEVEL 2.6 MG/DL (1.8-2.4); POTASSIUM SERUM 3.6 MMOL/L (3.5-5.1)
[2023-10-01 08:10] LABS: PROCALCITONIN 0.19 ng/ml
[2023-10-01] MEDS: cefTRIAXone SOD 1 GM in D5W MINI-BAG PLUS 50 ML IV SCH (08:13)
[2023-10-01] MEDS: MIDODRINE 5 MG TAB PO SCH (08:13)
[2023-10-01 08:39] LABS: PLATELET COUNT, AUTOMATED 69 10^3/uL (150-450)
[2023-10-01 08:45] VITALS: BP 93/54; TEMP 97.8; O2SAT 97
[2023-10-01] MEDS ORDERED: cefTRIAXone SOD 1 GM in D5W MINI-BAG PLUS 50 ML IV ONE (09:00)
[2023-10-01] MEDS ORDERED: AZITHROMYCIN 250MG TABLET PO ONE (09:00)
[2023-10-01] MEDS ORDERED: DOXYCYCLINE HYCLATE 100 MG in D5W MINI-BAG PLUS 100 ML IV SCH (10:00)
[2023-10-01] MEDS: SCOPOLAMINE 1MG TRANSDERMAL PATCH TOP PRN (10:25)
[2023-10-02] MEDS ORDERED: IPRATROPIUM 0.5MG/ALBUTEROL 2.5MG INH SOL UD 3ML (DUONEB) NEB PRN (12:35)
[2023-10-04] MEDS: MORPHINE 2 MG/ML 1ML VIAL IV PRN (13:39)
[2023-10-06 18:40] LABS: INR 1.63; PROTHROMBIN TIME 18.8 SECONDS (12.5-14.5)
[2023-10-07] MEDS: ceFAZolin SOD 2 GM in IV 1 EA IV ONE (08:13)
[2023-10-07] MEDS: NS 1,000 ML IV SCH (08:19)
[2023-10-07] MEDS: LORazepam 2 MG/ML 1ML VIAL IV PRN (08:40)
[2023-10-09] MEDS: MORPHINE 10MG/0.5ML ORAL CONCENTRATE SOLUTION U/D SL PRN (03:35)
[2023-10-11] MEDS: LORazepam 1 MG TAB PO PRN (00:13)
== END 2023-10-14 12:40 | disposition expired | DRG 189 ==
LOC: M ED 02:54 → M ED INP 06:45 → M MS5PR 09:20
PROVIDERS: ADMIT Student in an Organized Health Care Education/Training Program; ATTEND General Practice
DX: J96.01 Acute respiratory failure with hypoxia (principal); J18.9 Pneumonia, unspecified organism; R53.2 Functional quadriplegia; K76.7 Hepatorenal syndrome; N17.9 Acute kidney failure, unspecified; I85.10 Secondary esophageal varices without bleeding; R18.8 Other ascites; R64 Cachexia; E87.20 Acidosis, unspecified; E87.1 Hypo-osmolality and hyponatremia; J98.11 Atelectasis; D69.59 Other secondary thrombocytopenia; I95.89 Other hypotension; G71.02 Facioscapulohumeral muscular dystrophy; R57.1 Hypovolemic shock; D53.9 Nutritional anemia, unspecified; Z66 Do not resuscitate; K75.81 Nonalcoholic steatohepatitis (NASH); E78.5 Hyperlipidemia, unspecified; I10 Essential (primary) hypertension; Z79.899 Other long term (current) drug therapy; Z90.49 Acquired absence of other specified parts of digestive tract